=== PATIENT | female | born 1940 | race Caucasian/White ===

== ENCOUNTER 2020-10-24 16:38 | Outpatient (REF) | payer MEDICARE, OTHER, SELFPAY ==
[2020-10-24 17:08] LABS: MANUAL DIFF FLAG NO
[2020-10-24 17:15] LABS: Basophils Percent Auto 0.5 % (0-2); Eosinophils Absolute Auto 0.1 X10*3/uL (0.0-0.4); Eosinophils Percent Auto 1.1 % (0-4); Hematocrit 44.6 % (37-47); Imm Gran Abs Auto 0.02 X10*3/uL (0.00-0.03); Imm Gran Pct Auto 0.2 % (0.0-0.4); Lymphocytes Absolute Auto 2.1 X10*3/uL (1.2-4.9); Lymphocytes Percent Auto 25.6 % (20-40); Mean Corpuscular HGB Conc 33.6 g/dl (31.0-35.0); Mean Corpuscular Hemoglobin 32.1 pg (27.0-33.0); Mean Corpuscular Volume 95.3 fL (80-98); Mean Platelet Volume 10.7 fL (9.4-12.3); Monocytes Absolute Auto 0.6 X10*3/uL (0.1-1.2); Monocytes Percent Auto 7.1 % (2-11); Neutrophils Absolute Auto 5.3 X10*3/uL (2.0-8.3); Neutrophils Percent Auto 65.5 % (45-73); Platelet Count 259 X10*3/uL (160-400); Red Blood Count 4.68 X10*6/uL (4.20-5.50); Red Cell Distribution Width 12.5 % (11.0-16.0); White Blood Count 8.2 X10*3/uL (4.8-10.8)
[2020-10-24 17:26] LABS: Estimated Average Glucose 128 mg/dL; Hemoglobin A1c % 6.1 %
[2020-10-24 17:36] LABS: Alanine Aminotransferase 18 U/L (0-31); Albumin Level 4.5 g/dL (3.5-5.0); Alkaline Phosphatase 75 U/L (39-117); Anion Gap 15 (12-20); Aspartate Amino Transferase 21 U/L (5-31); Bilirubin Total 0.8 mg/dL (0.0-1.0); Blood Urea Nitrogen 16 mg/dL (9-16); Calcium 9.8 mg/dL (8.4-10.2); Carbon Dioxide 29 mmol/L (22-29); Chloride 99 mmol/L (96-108); Estimated Glomerular Filt Rate > 60; Glucose Random 118 mg/dL (60-115); Potassium 4.8 mmol/L (3.3-5.1); Sodium 138 mmol/L (135-145); Total Protein 7.4 g/dL (6.5-8.0)
== END 2020-10-24 16:39 | disposition home or self-care (01) ==
LOC: HO.LAB 16:38
PROVIDERS: PCP Internal Medicine; Visit Provider Internal Medicine
DX: I10 Essential (primary) hypertension (principal); R73.03 Prediabetes
CPT/HCPCS: 36415; 80053; 83036; 85025

== ENCOUNTER 2021-07-20 09:04 | Outpatient (REF) | payer MEDICARE, OTHER, SELFPAY ==
[2021-07-20 11:18] LABS: MANUAL DIFF FLAG NO
[2021-07-20 11:28] LABS: Basophils Percent Auto 0.4 % (0-2); Eosinophils Absolute Auto 0.1 X10*3/uL (0.0-0.4); Eosinophils Percent Auto 2.1 % (0-4); Hematocrit 42.5 % (37.0-47.0); Imm Gran Abs Auto 0.01 X10*3/uL (0.00-0.03); Imm Gran Pct Auto 0.2 % (0.0-0.4); Lymphocytes Absolute Auto 1.6 X10*3/uL (1.2-4.9); Lymphocytes Percent Auto 30.8 % (20-40); Mean Corpuscular HGB Conc 32.9 g/dl (31.0-35.0); Mean Corpuscular Hemoglobin 31.6 pg (27.0-33.0); Mean Corpuscular Volume 95.9 fL (80.0-98.0); Mean Platelet Volume 11.2 fL (9.4-12.3); Monocytes Absolute Auto 0.5 X10*3/uL (0.1-1.2); Monocytes Percent Auto 9.2 % (2-11); Neutrophils Absolute Auto 3.1 x10*3/uL (2.0-8.3); Neutrophils Percent Auto 57.3 % (45-73); Platelet Count 198 X10*3/uL (160-400); Red Blood Count 4.43 X10*6/uL (4.20-5.50); Red Cell Distribution Width 12.9 % (11.0-16.0); White Blood Count 5.3 X10*3/uL (4.8-10.8)
[2021-07-20 11:47] LABS: Appearance Urine CLEAR; Color Urine YELLOW; Glucose Urine UA NEG (NEG); Leukocyte Esterase Urine NEG (NEG); Nitrite Urine NEG (NEG); Specific Gravity - Urine 1.015 (1.005-1.025); Urine Blood NEG (NEG); Urine Ketones NEG (NEG); Urine Protein NEG (NEG-TRACE)
[2021-07-20 11:54] LABS: Alanine Aminotransferase 17 U/L (0-31); Alkaline Phosphatase 64 U/L (39-117); Anion Gap 15 (12-20); Aspartate Amino Transferase 19 U/L (5-31); Bilirubin Total 0.9 mg/dL (0.0-1.0); Blood Urea Nitrogen 15 mg/dL (9-16); Calcium 9.2 mg/dL (8.4-10.2); Carbon Dioxide 24 mmol/L (22-29); Chloride 104 mmol/L (96-108); Cholesterol 196 mg/dL; Estimated Glomerular Filt Rate > 60; Glucose Fasting 119 mg/dL (60-99); HDL Cholesterol 47 mg/dL; LDL Cholesterol Calculated 124 mg/dl; Potassium 4.3 mmol/L (3.3-5.1); Sodium 139 mmol/L (135-145); Total Protein 6.5 g/dL (6.5-8.0); Triglycerides 126 mg/dL
[2021-07-20 12:16] LABS: Estimated Average Glucose 134 mg/dL; Hemoglobin A1c % 6.3 %
[2021-07-20 12:20] LABS: Creatinine Urine 78.16 mg/dL; Microalbumin Urine < 5.0 mg/L
== END 2021-07-20 09:05 | disposition home or self-care (01) ==
LOC: HO.HMGCLDS 09:04
PROVIDERS: PCP Internal Medicine; Visit Provider Internal Medicine
DX: Z00.00 Encounter for general adult medical examination without abnormal findings (principal); I10 Essential (primary) hypertension; R73.03 Prediabetes; E55.9 Vitamin D deficiency, unspecified
CPT/HCPCS: 36415; 80053; 80061; 81003; 82043; 82306; 83036; 85025

== ENCOUNTER 2021-07-25 13:52 | Outpatient (REF) | payer MEDICARE, OTHER, SELFPAY ==
--- NOTE | ~2021-07-25 | MM_ITS ---
EXAMINATION: MM SCREENING DIGITAL BREAST TOMOSYNTHESIS, BILATERAL CLINICAL INFORMATION: Screening. Asymptomatic. The lifetime risk of breast cancer based on the Tyrer-Cuzick Model is 1%. COMPARISON: Mammography: 08/17/2019, 06/06/2017, 08/24/2015 TECHNIQUE: Digital breast tomosynthesis is performed in both the craniocaudal and mediolateral oblique views along with computer-aided detection (CAD). Synthesized 2D images are generated from the tomosynthesis. Additional right MLO view is provided. FINDINGS: There are scattered areas of fibroglandular density (ACR BI-RADS breast composition Category b). There are no significant masses, abnormal calcifications, or other abnormalities. MM/MM tomosynthesis screening BI IMPRESSION: No mammographic evidence of malignancy. ASSESSMENT: BI-RADS 1: Negative RECOMMENDATION: Routine annual mammography screening. This patient's information was entered into a reminder system with a target due date for their next mammogram.
== END 2021-07-25 13:53 | disposition home or self-care (01) ==
LOC: HO.MAMMO 13:52
PROVIDERS: Visit Provider Internal Medicine
DX: Z12.31 Encounter for screening mammogram for malignant neoplasm of breast (principal)
CPT/HCPCS: 77063; 77067

== ENCOUNTER → 2021-09-18 09:13 | Outpatient (REF) | payer MEDICARE, OTHER, SELFPAY ==
--- NOTE | 2021-09-18 09:30 | CA_ITS ---
Transthoracic Echocardiogram Patient (Last, First, Middle): Leora Quinones E Gender: Female Date of : 1940 Age: 81 Procedure Date: 09/18/2021 Procedure Type: Transthoracic Echocardiogram Location: OP Height: 170.18 cm Weight: 92.99 kg BSA: 2.04 m2 Heart Rate: bpm BP: 116 / 70 mmHg Flight Control Tower Operator: NEO Referring MD: Benjamin Lynn MD Symptoms: CARDIAC MURMUR, UNSPECIFIED MURMUR Study Quality: Fair ECG Rhythm: Sinus Conclusions: - The left ventricular systolic function is normal. The visually estimated ejection fraction is between 65-70%. - There is severe aortic valve stenosis. - There is moderate mitral annular calcification. Findings Left Ventricle Normal left ventricular cavity size. There is mildly increased left ventricular wall thickness. The left ventricular systolic function is normal. The visually estimated ejection fraction is between 65-70%. There is no evidence of regional wall motion abnormalities. Evidence suggests grade I (mild) diastolic dysfunction. Right Ventricle Normal right ventricular cavity size and systolic function. Atria Both atria are normal in size. Aortic Valve There is moderate calcification of the aortic valve. There is severe aortic valve stenosis. The peak aortic velocity is 4.32 m/s with a calculated peak gradient of 75 mmHg. The mean gradient is 44 mmHg. The aortic valve area is 0.85 cm2. There is trace (trivial) aortic valve regurgitation. Mitral Valve There is moderate mitral annular calcification. There is mild mitral valve regurgitation. There is no mitral valve stenosis. Pulmonic Valve The pulmonic valve was not well visualized. Tricuspid Valve There is mild tricuspid valve regurgitation. The pulmonary artery systolic pressure is normal. Great Vessels The aortic annulus, sinuses of valsalva, and asc aorta are normal in size. Venous The inferior vena cava is normal in size and collapses greater than 50% with inspiration. Pericardium/Pleural There is no evidence of pericardial effusion. Prior Study Comparison Changes noted compared to prior study dated: 08/17/2019. Progression of aortic stenosis. Measurements 2D Linear Measurements IVSd: 1.20 0.6-0.9/0.6-1.0 cm LVIDd: 5.01 3.9-5.3/4.2-5.9 cm LVIDd Index: 2.46 2.4-3.2/2.2-3.1 cm/m2 LVIDs: 3.09 2.0-3.6 cm LVPWd: 1.17 0.7-1.1 cm Ao Root: 2.80 2.1-3.5 cm LA Diam: 4.00 2.7-3.8/3.0-4.0 cm LAIDs Index: 1.96 1.5-2.3 cm/m2 LV Mass: 287.24 67-162/88-224 g LV Mass Index: 140.81 43-95/49-115 g/m2 LVOT Diam: 2.00 3.0+(-)1.3 cm 2D Systolic Function EF 4C: 56.60 >55% EF 2C: 62.00 >55% EF BiP: 60.20 >55% Mitral Valve MV Pk E: 1.11 MV PK A: 1.57 MV Decel Time: 394.00 E/A: 0.70 E'Lateral: 6.31 E'Medial: 4.03 E/E' Med: 27.50 E/E' Lat: 17.60 PHT: 116.00 MVA PHT: 1.90 Decel Faulk: 2.81 Aortic Valve AoV Pk Sudarshan: 4.32 AoV Mn Sudarshan: 3.19 AoV VTI: 1.15 AoV Pk Grad: 75.00 Aov Mn Grad: 44.00 FRACISCO Cont.VTI: 0.85 LVOT LVOT Pk Sudarshan: 1.11 LVOT Mn Sudarshan: 0.79 LVOT VTI: 0.31 LVOT Pk Grad: 5.00 LVOT Mn Grad: 3.00 LVOT Diam: 2.00 LVOT Area: 3.14 Diastolic Function MV Pk E: 1.11 MV Pk A: 1.57 E/A: 0.70 E'Medial: 4.03 E/E' Med: 27.50 E' Laterial: 6.31 E/E' Lat: 17.60 Right Ventricle TAPSE (mm): 23.50 TVS' Sudarshan: 11.50 Tricuspid Valve TR Pk Sudarshan: 2.67 TR Pk Grad: 29.00 RA Press: 3.00 RVSP: 32.00 Great Vessels Aorta Ao Root-2D: 2.80 2.0-3.7 cm Ao Asc: 3.30 2.1-3.4 cm Ao Arch: 3.10 Updated in Other Vendor System with Status of Final Shaun Palencia MD electronically signed on 09/19/2021 11:25:22 AM with status of Final
== END ==
LOC: HO.CARD 09:13
PROVIDERS: PCP Internal Medicine; Visit Provider Internal Medicine
DX: R01.1 Cardiac murmur, unspecified (principal)
CPT/HCPCS: 93306

== ENCOUNTER 2022-04-02 12:19 | Outpatient (REF) | payer MEDICARE, OTHER, SELFPAY ==
--- NOTE | ~2022-04-02 | XR_ITS ---
EXAMINATION: XR SHOULDER, LEFT CLINICAL INFORMATION: Left shoulder pain COMPARISON: None TECHNIQUE: Three views of the left shoulder. FINDINGS: No fracture or dislocation. The glenohumeral joint is well aligned. The acromioclavicular joint is intact with moderate hypertrophic degenerative change. The visualized lung is clear. The visualized ribs are intact. XR/XR shoulder LT min 2V IMPRESSION: Moderate degenerative changes of the acromioclavicular joint.
== END 2022-04-02 12:20 | disposition home or self-care (01) ==
LOC: HO.HOSX 12:19
PROVIDERS: Visit Provider Physician Assistant
DX: M19.012 Primary osteoarthritis, left shoulder (principal)
CPT/HCPCS: 20600; 73030; 99202; J1020

== ENCOUNTER 2022-05-02 10:51 | Outpatient (REF) | payer MEDICARE, OTHER, SELFPAY ==
[2022-05-02 14:08] LABS: MANUAL DIFF FLAG NO
[2022-05-02 14:20] LABS: Basophils Percent Auto 0.3 % (0-2); Eosinophils Percent Auto 0.3 % (0-4); Hemoglobin 13.4 g/dl (12.0-16.0); Imm Gran Abs Auto 0.03 X10*3/uL (0.00-0.03); Imm Gran Pct Auto 0.4 % (0.0-0.4); Lymphocytes Absolute Auto 1.1 X10*3/uL (1.2-4.9); Lymphocytes Percent Auto 15.7 % (20-40); Mean Corpuscular HGB Conc 33.5 g/dl (31.0-35.0); Mean Corpuscular Hemoglobin 31.5 pg (27.0-33.0); Mean Corpuscular Volume 94.1 fL (80.0-98.0); Mean Platelet Volume 10.5 fL (9.4-12.3); Monocytes Absolute Auto 0.5 X10*3/uL (0.1-1.2); Monocytes Percent Auto 7.9 % (2-11); Neutrophils Percent Auto 75.4 % (45-73); Platelet Count 219 X10*3/uL (160-400); Red Blood Count 4.25 X10*6/uL (4.20-5.50); Red Cell Distribution Width 13.2 % (11.0-16.0); White Blood Count 6.7 X10*3/uL (4.8-10.8)
[2022-05-02 14:31] LABS: Estimated Average Glucose 120 mg/dL; Hemoglobin A1c % 5.8 %
[2022-05-02 14:40] LABS: Alanine Aminotransferase 31 U/L (0-31); Alkaline Phosphatase 59 U/L (39-117); Anion Gap 15 (12-20); Aspartate Amino Transferase 26 U/L (5-31); Bilirubin Total 0.6 mg/dL (0.0-1.0); Blood Urea Nitrogen 13 mg/dL (9-16); C Reactive Protein 0.21 mg/dL (< or = 0.50); Calcium 9.4 mg/dL (8.4-10.2); Carbon Dioxide 26 mmol/L (22-29); Chloride 95 mmol/L (96-108); Estimated Glomerular Filt Rate > 60; Glucose Random 106 mg/dL (60-115); Potassium 4.5 mmol/L (3.3-5.1); Sodium 131 mmol/L (135-145); Total Protein 6.5 g/dL (6.5-8.0)
[2022-05-02 14:59] LABS: Erythrocyte Sedimentation Rate 5 MM/HR (0-20)
[2022-05-02 15:03] LABS: Free T4 (Free Thyroxine) 1.01 ng/dL (0.71-1.85); Thyroid Stimulating Hormone 0.76 uIU/mL (0.32-4.0)
[2022-05-02 15:36] LABS: Vitamin B12 280 pg/mL (200-900)
== END 2022-05-02 10:52 | disposition home or self-care (01) ==
LOC: HO.HMGCLDS 10:51
PROVIDERS: PCP Internal Medicine; Visit Provider Internal Medicine
DX: I10 Essential (primary) hypertension (principal); R73.03 Prediabetes; M79.659 Pain in unspecified thigh; Z95.2 Presence of prosthetic heart valve
CPT/HCPCS: 36415; 80053; 82550; 82607; 83036; 84439; 84443; 85025; 85652; 86140

== ENCOUNTER 2022-06-04 09:10 | Outpatient (REF) | payer MEDICARE, OTHER, SELFPAY ==
--- NOTE | ~2022-06-04 | CT_ITS ---
EXAMINATION: CT LUMBAR SPINE WITHOUT CONTRAST CLINICAL INFORMATION: Lower extremity numbness. COMPARISON: No relevant prior imaging. TECHNIQUE: Supervisor Vacuum Metalizing images were obtained. CT imaging of the lumbar spine was performed without contrast. Data was reformatted into multiplanar images at the acquisition workstation. This CT examination was performed using dose optimization techniques as appropriate, variously including the following: *Automated exposure control *Adjustment of mA and/or kV according to patient size (this includes techniques or standardized protocols for targeted exams where dose is matched to indication/reason for exam; i.e. extremities or head) *Use of iterative reconstruction technique DLP; 679 mGy-cm FINDINGS: Grade 1 anterolisthesis and slight left lateral subluxation of L4 on L5 related to advanced facet degenerative changes at this level. Alignment is otherwise grossly maintained in the sagittal dimension. Vertebral heights are preserved. Bridging bone fuses the vertebral segments at L4-L5 and L5-S1. There is slight loss of intervertebral disc height with associated sclerotic degenerative endplate changes and hypertrophic disc osteophyte spurring at multiple levels. Canal patency is not well assessed on this examination due to inherent limitations of CT without intrathecal contrast. There is at least mild canal stenosis at the level of L3-L4. Partial effacement of perineural fat at the levels of L4-L5 and L5-S1 with mild mass effect on the L4 and L5 foraminal nerve roots respectively. Limited visualization the retroperitoneal anatomy reveals no abnormal finding. Scattered atheromatous caliber indication involve the abdominal aorta and iliac vessels. 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 Bridging bone fuses the vertebral segments at L4-L5 and L5-S1. 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
== END 2022-06-04 09:11 | disposition home or self-care (01) ==
LOC: HO.CT 09:10
PROVIDERS: PCP Internal Medicine; Visit Provider Internal Medicine
DX: R20.2 Paresthesia of skin (principal)
CPT/HCPCS: 72131

== ENCOUNTER → 2022-06-07 10:07 | Outpatient (BNVA) | payer MEDICARE, OTHER, SELFPAY | PROVIDERS: PCP Internal Medicine; Visit Provider Physician Assistant | DX: M19.012 Primary osteoarthritis, left shoulder (principal); S46.019A Strain of muscle(s) and tendon(s) of the rotator cuff of unspecified shoulder, initial encounter | CPT/HCPCS: 99212 ==

== ENCOUNTER 2022-08-05 11:00 | Outpatient (RCR) | payer MEDICARE, OTHER, SELFPAY ==
--- NOTE | 2022-06-25 10:53 | MHC.PT.EP ---
[facility] [place] Office [place] Office [place] Office [address] Erik Mejia [address] [phone] F: [phone] F: [phone] F: [phone] F: [phone] Physical Therapy Plan of Care Date of Evaluation: Date of Surgery: n/a Diagnosis: L shoulder RC strain Assessment: Patient is an 82 year old female presenting to PT with complaints of pain in her L shoulder. Pt reports onset of pain began April 2022 due to pushing off to get up out of a seated position. She presents today with impairments in pain, ROM, strength, and posture. Pt's current occupation is retired, with baseline physical activities including ADLs, reaching, lifting, knitting, driving. Pt expresses care home goal of reducing pain, and is motivated to work towards this in PT. Clinical presentation today is most consistent with signs and sx associated with possible RC injury although biceps injury cannot be ruled out at this time and pt will benefit from skilled PT to address the following problems and impairments noted upon evaluation: pain, ROM, strength, and posture. These problems limit the patient with the following functional activities: reaching, ADLs, lifting, driving, knitting. The prescribed treatment plan of care is medically necessary. Co-morbidities of heart valve replacement, DM were identified and taken into considerations of plan of care. Pt was educated on HEP, role of PT, prognosis, POC. Frequency and Duration: The patient will be seen 2 x week x 4 weeks Short Term Goals: Pt will demonstrate improved shoulder ROM for flex and abd by 20 degrees to 80 and 65 respectively in 2 weeks. Pt will demonstrate at least 3+/5 MMT strength on L in 2 weeks. Pt will demonstrate improved postural awareness by sitting with biomechanically correct posture without cues throughout session to improve overall postural function in 2 weeks. Cotton Buyer Goals: Pt will demonstrate improved SPADI score by 13 points in 4 weeks for improved functional mobility. Pt will demonstrate ability to driving with min to no pain or limitation in 4 weeks. Pt will demonstrate ability to reach and lift with min to no pain in 4 weeks for improved tolerance to ADLs. Treatment Plan: Modalities to reduce pain, spasms and effusion. Manual therapy to restore motion and function. Therapeutic exercise to improve strength and flexibility. Neuromuscular re-education for posture and balance. Therapeutic activities to return to functional activities of daily living. Electronically signed by: Mala Zambrano PT, DPT, ATC Please sign and return to therapist. Thank you for your referral.
--- NOTE | 2022-08-05 11:54 | MHC.PT.DC ---
[facility] [place] Office [place] Office [place] Office [address] Erik Mejia [address] [phone] F: [phone] F: [phone] F: [phone] F: [phone] Physical Therapy Discharge Report Diagnosis: L shoulder RC strain Date of Surgery: n/a Date of Evaluation: 06/25/22 Date of Discharge: 08/05/22 Treatments to Date: 12 Cancellations to Date: 0 No Shows to Date: 0 Discharge Status: Improved Function Independent with HEP Discharge Summary: 08/05/2022: Pt demonstrates improvement since beginning skilled PT however she is continuing to experiencing limitations in her ROM and strength especially ER. She feels functionally she is in a better spot as she is able to tolerate most things she needs to do at home. At this point max benefits of PT have been provided and skilled PT is no longer indicated at this time. She understands importance of continuing with HEP at home to maintain benefits made thus far. Pt to be d/c to HEP as she has a new referral for gait and balance which we will be switching over to. Pt is in agreement with plan. 07/29/2022: Continues with challenge in ER but continues to tolerate all exercises without pain. Challenge with flexion on the wall still but this is improving. Plan to d/c next visit Electronically signed by: Mala Zambrano, PT, DPT, ATC Please sign and return to therapist. Thank you for your referral.
== END 2022-08-05 11:54 | disposition home or self-care (01) ==
LOC: HO.PTCHIC 11:00
PROVIDERS: PCP Internal Medicine; Visit Provider Physician Assistant
DX: M19.012 Primary osteoarthritis, left shoulder (principal); S46.012A Strain of muscle(s) and tendon(s) of the rotator cuff of left shoulder, initial encounter
CPT/HCPCS: 97110; 97161

== ENCOUNTER 2022-09-13 11:00 | Outpatient (RCR) | payer MEDICARE, OTHER, SELFPAY | END 2022-09-27 12:58 | disposition home or self-care (01) | LOC: HO.PTCHIC 11:00 | PROVIDERS: PCP Internal Medicine; Visit Provider Neurological Surgery | DX: R26.89 Other abnormalities of gait and mobility (principal) | CPT/HCPCS: 97110; 97112; 97162; 97530 ==

== ENCOUNTER 2023-02-20 09:15 | Outpatient (REF) | payer MEDICARE, OTHER, SELFPAY ==
[2023-02-20 10:43] LABS: MANUAL DIFF FLAG NO
[2023-02-20 10:51] LABS: Basophils Percent Auto 0.7 % (0-2); Eosinophils Absolute Auto 0.1 X10*3/uL (0.0-0.4); Hematocrit 41.8 % (37.0-47.0); Imm Gran Abs Auto 0.01 X10*3/uL (0.00-0.03); Imm Gran Pct Auto 0.2 % (0.0-0.4); Lymphocytes Absolute Auto 1.8 X10*3/uL (1.2-4.9); Lymphocytes Percent Auto 31.7 % (20-40); Mean Corpuscular HGB Conc 33.5 g/dl (31.0-35.0); Mean Corpuscular Hemoglobin 31.8 pg (27.0-33.0); Mean Platelet Volume 11.7 fL (9.4-12.3); Monocytes Absolute Auto 0.5 X10*3/uL (0.1-1.2); Neutrophils Absolute Auto 3.2 x10*3/uL (2.0-8.3); Neutrophils Percent Auto 57.4 % (45-73); Platelet Count 189 X10*3/uL (160-400); White Blood Count 5.6 X10*3/uL (4.8-10.8)
[2023-02-20 11:14] LABS: Alanine Aminotransferase 13 U/L (0-31); Albumin Level 3.9 g/dL (3.5-5.0); Alkaline Phosphatase 75 U/L (39-117); Anion Gap 14 (12-20); Aspartate Amino Transferase 17 U/L (5-31); Bilirubin Total 0.8 mg/dL (0.0-1.0); Blood Urea Nitrogen 16 mg/dL (9-16); Calcium 9.5 mg/dL (8.4-10.2); Carbon Dioxide 26 mmol/L (22-29); Chloride 103 mmol/L (96-108); Cholesterol 189 mg/dL; Estimated Glomerular Filt Rate > 60; Glucose Random 121 mg/dL (60-115); HDL Cholesterol 48 mg/dL; LDL Cholesterol Calculated 119 mg/dl; Potassium 4.2 mmol/L (3.3-5.1); Sodium 139 mmol/L (135-145); Total Protein 6.7 g/dL (6.5-8.0); Triglycerides 111 mg/dL
[2023-02-20 11:35] LABS: Estimated Average Glucose 128 mg/dL; Hemoglobin A1c % 6.1 %
== END 2023-02-20 09:16 | disposition home or self-care (01) ==
LOC: HO.10HDL 09:15
PROVIDERS: Visit Provider Internal Medicine
DX: I10 Essential (primary) hypertension (principal); R73.03 Prediabetes; M51.36 Other intervertebral disc degeneration, lumbar region
CPT/HCPCS: 36415; 80053; 80061; 83036; 85025

== ENCOUNTER 2023-04-03 09:32 | Outpatient (REF) | payer MEDICARE, OTHER, SELFPAY ==
--- NOTE | ~2023-04-03 | MM_ITS ---
EXAMINATION: MM SCREENING DIGITAL BREAST TOMOSYNTHESIS, BILATERAL CLINICAL INFORMATION: Screening. Asymptomatic. The lifetime risk of breast cancer based on the Tyrer-Cuzick Model is 0.4%. COMPARISON: Mammography: 07/25/2021,08/17/2019, 06/06/2017, 08/24/2015. TECHNIQUE: Digital breast tomosynthesis is performed in both the craniocaudal and mediolateral oblique views along with computer-aided detection (CAD). Synthesized 2D images are generated from the tomosynthesis. FINDINGS: There are scattered areas of fibroglandular density (ACR BI-RADS breast composition Category b). There are no suspicious masses, suspicious grouped calcifications, or areas of architectural distortion. The parenchymal pattern is stable from prior exams. There are bilateral vascular calcifications. MM/MM tomosynthesis screening BI IMPRESSION: No mammographic evidence of malignancy. ASSESSMENT: BI-RADS BI-RADS 2 - Benign Findings RECOMMENDATION: Routine annual mammography screening. 1 year F/U This examination should not preclude the clinical evaluation of a suspicious palpable abnormality. This patient's information was entered into a reminder system with a target due date for their next mammogram.
--- NOTE | ~2023-04-03 | MM_ITS ---
EXAMINATION: BONE DENSITOMETRY CLINICAL INDICATION: Postmenopausal. COMPARISON: Baseline BD dated 08/10/2009. TECHNIQUE: Using a Self Point DXA System (software version: 13.1) manufactured by [employer], dual-energy x-ray absorptiometry was performed of the lumbar spine and left hip. The images are of good technical quality. Summary results are attached. FINDINGS: LEFT FEMUR, NECK: Current: BMD 0.801 g/cm2, Z-score 0.1, T-score -1.7, osteopenia. Baseline: BMD 0.939 g/cm2. LEFT FEMUR, TOTAL: Current: BMD 0.907 g/cm2, Z-score 0.9, T-score -0.8, normal, 17.8% decrease from baseline (<5% change is not significant). Baseline: BMD 1.104 g/cm2. AP SPINE L1-L4 (excluding L3): The data of L1-L4 has been changed to exclude the L3 vertebral body, because degenerative sclerosis at this level may cause overestimation of lumbar spine density. Current: BMD 1.401 g/cm2, Z-score 3.0, T-score 1.9, normal, 5.7% increase from baseline (<5% change is not significant). Baseline: BMD 1.326 g/cm2. IDENTIFIED RISK FACTORS: Menopause, hysterectomy, height loss, bilateral oophorectomy. HISTORY OF FRACTURE: None listed. MEDICATIONS: None listed. MM/XR DEXA axial skeleton IMPRESSION: 1. DIAGNOSIS: Osteopenia based on the lowest T-score value of -1.7 in the femoral neck applying World Health Organization criteria. 2. 10-YEAR FRACTURE RISK PREDICTION, FRAX: Major osteoporotic fracture (clinical spine, forearm, hip or shoulder) 13.9%. Hip fracture 3.8%. 3. Treatment Recommendations: NOF guidelines recommend consideration for treatment in postmenopausal women and men age 50 and older presenting with the following: -A hip or vertebral (clinical or morphometric) fracture. -T-score less than or equal to -2.5 at the femoral neck or spine after appropriate evaluation to exclude secondary causes. -Low bone mass at the hip or spine and a 10-year fracture probability by FRAX of greater than or equal to 3% for hip fracture or greater than or equal to 20% for major osteoporotic fracture based on the [place] adapted WHO algorithm. 4. Other Recommendations: All treatment decisions require clinical judgment and consideration of individual patient factors, including patient preferences, comorbidities, previous drug use, risk factors not captured in the FRAX model (e.g. frailty, falls, vitamin D deficiency, increased bone turnover, interval significant decline in bone density) and possible under or overestimation of fracture risk by FRAX. Additional medical evaluation for secondary cause of low bone mineral density may be appropriate. FUTURE SCAN RECOMMENDATION: People with diagnosed cases of osteoporosis or at high risk for fracture should have regular bone mineral density tests. For patients eligible for Medicare, routine testing is allowed once every 2 years. The testing frequency can be increased to one year for patients who have rapidly progressing disease, those who are receiving or discontinuing medical therapy to restore bone mass, or have additional risk factors.
== END 2023-04-03 09:33 | disposition home or self-care (01) ==
LOC: HO.MAMMO 09:32
PROVIDERS: PCP Internal Medicine; Visit Provider Internal Medicine
DX: Z12.31 Encounter for screening mammogram for malignant neoplasm of breast (principal); Z13.820 Encounter for screening for osteoporosis; Z78.0 Asymptomatic menopausal state
CPT/HCPCS: 77063; 77067; 77080

== ENCOUNTER → 2023-04-03 10:00 | Outpatient (BNV) | payer MEDICARE, OTHER, SELFPAY | PROVIDERS: PCP Internal Medicine; Visit Provider Radiology Diagnostic Radiology | DX: Z12.31 Encounter for screening mammogram for malignant neoplasm of breast (principal) | CPT/HCPCS: 77063; 77067; 77080 ==

== ENCOUNTER 2024-01-14 11:14 | Outpatient (REF) | payer MEDICARE, OTHER, SELFPAY ==
[2024-01-14 13:17] LABS: MANUAL DIFF FLAG NO
[2024-01-14 13:32] LABS: Basophils Absolute Auto 0.1 X10*3/uL (0.0-0.2); Basophils Percent Auto 0.6 % (0-2); Eosinophils Absolute Auto 0.1 X10*3/uL (0.0-0.4); Eosinophils Percent Auto 0.6 % (0-4); Hematocrit 43.1 % (37.0-47.0); Hemoglobin 14.5 g/dl (12.0-16.0); Imm Gran Abs Auto 0.03 X10*3/uL (0.00-0.03); Imm Gran Pct Auto 0.4 % (0.0-0.4); Lymphocytes Absolute Auto 1.7 X10*3/uL (1.2-4.9); Lymphocytes Percent Auto 20.9 % (20-40); Mean Corpuscular HGB Conc 33.6 g/dl (31.0-35.0); Mean Corpuscular Hemoglobin 32.6 pg (27.0-33.0); Mean Corpuscular Volume 96.9 fL (80.0-98.0); Mean Platelet Volume 11.2 fL (9.4-12.3); Monocytes Absolute Auto 0.7 X10*3/uL (0.1-1.2); Monocytes Percent Auto 8.4 % (2-11); Neutrophils Absolute Auto 5.5 x10*3/uL (2.0-8.3); Neutrophils Percent Auto 69.1 % (45-73); Platelet Count 210 X10*3/uL (160-400); Red Blood Count 4.45 X10*6/uL (4.20-5.50); Red Cell Distribution Width 13.2 % (11.0-16.0)
[2024-01-14 13:35] LABS: Estimated Average Glucose 134 mg/dL; Hemoglobin A1c % 6.3 % (<6.0)
[2024-01-14 13:47] LABS: Alanine Aminotransferase 15 U/L (0-31); Albumin Level 3.9 g/dL (3.5-5.0); Alkaline Phosphatase 58 U/L (39-117); Anion Gap 12 (12-20); Aspartate Amino Transferase 18 U/L (5-31); Bilirubin Total 0.5 mg/dL (0.0-1.0); Blood Urea Nitrogen 17 mg/dL (9-16); Calcium 9.8 mg/dL (8.4-10.2); Carbon Dioxide 27 mmol/L (22-29); Chloride 101 mmol/L (96-108); Estimated Glomerular Filt Rate > 60; Glucose Random 113 mg/dL (60-115); Potassium 4.1 mmol/L (3.3-5.1); Sodium 136 mmol/L (135-145); Total Protein 6.7 g/dL (6.5-8.0); Uric Acid 7.1 mg/dL (2.4-5.7)
[2024-01-14 13:55] LABS: Vitamin D 25-OH Total 49.1 ng/mL (>30)
[2024-01-14 14:10] LABS: Creatinine Urine 75.27 mg/dL; Microalbum/Creatinine Ratio Ur 7.9 ug/mg cr (<30)
== END 2024-01-14 11:15 | disposition home or self-care (01) ==
LOC: HO.HMGCLDS 11:14
PROVIDERS: PCP Internal Medicine; Visit Provider Internal Medicine
DX: I10 Essential (primary) hypertension (principal); R73.03 Prediabetes; M10.9 Gout, unspecified; Z95.2 Presence of prosthetic heart valve
CPT/HCPCS: 36415; 80053; 82043; 82306; 82570; 83036; 84550; 85025

== ENCOUNTER 2025-01-14 14:14 | Outpatient (AMB) | payer MEDICARE, OTHER, SELFPAY ==
--- NOTE | 2025-01-14 11:41 | MHC.PC.OV ---
Intake Visit Reasons: Routine Senior Pricing Analyst Required: No Accompanied by: Self / Same As Patient Allergies doxycycline Allergy (Verified 01/14/25 11:42) lip tingling & SOB Tobacco use date assessed: 01/14/25 Fall risk assessment: No Falls in past year Last assessed Fall Risk: 01/14/25 Dental Screening Dental Screen Date: 01/14/25 Did you have a dental visit in the last 12 months?: Yes Did you have a dental problem in the last 6 months where you did not have access to dental care?: No HPI HPI Comments History of Present Illness Details The patient is an 84 year old female with a past medical history of hypertension, NIDDM, neck pain, s/p TAVR presenting for follow up DM: PFSH Medical History FH: cholecystectomy Surgical History History of colonoscopy (~05/19/13) S/P left knee arthroscopy History of appendectomy Heart valve replaced Social History Housing: House Patient Tobacco Use Status: Never used Tobacco e-Cigarette/Vaping Use: Never Used service: No Current occupational status: retired Cognitive needs: No Hearing needs: No Vision needs: No Questionnaire PHQ-9 Over the last 2 weeks, how often have you been bothered by any of the following problems? 1. Little interest or pleasure in doing things: not at all 2. Feeling down, depressed, or hopeless: not at all 3. Trouble falling or staying asleep, or sleeping too much: not at all 4. Feeling tired or having little energy: not at all 5. Poor appetite or overeating: not at all 6. Feeling bad about yourself - or that you are a failure or have let yourself or your family down: not at all 7. Trouble concentrating on things, such as reading the newspaper or watching television: not at all 8. Moving or speaking so slowly that other people could have noticed. Or the opposite - being so fidgety or restless that you have been moving around a lot more than usual: not at all 9. Thoughts that you would be better off or of hurting yourself in some way: not at all Total score: 0 Source: Developed by Drs. Mario Canales, Cynthia Rosales, Fly Ortega and colleagues, with an educational chriss from [employer]. Thrive Questionnaire Date Thrive assessed: 01/14/25 I am a: Patient Within the past 12 months, did the food you bought not last and you didn't have the money to get more?: Never true Do you have trouble paying for medicines?: No Do you have trouble getting transportation to medical appointments?: No Do you have trouble paying your heating and electricity bill?: No Do you have trouble taking care of your child, family member or friend?: No Do you have trouble with day-to-day activities such as bathing, preparing meals, shopping, managing finances, etc.?: No Are you currently unemployed and looking for a job?: No Are you interested in more education?: No THRIVE Score: 0 AUDIT C Alcohol Use Questionnaire (AUDIT-C) 1. How often do you have a drink containing alcohol?: Never 3. How often do you have six or more drinks on one occasion?: Never Total Score: 0 KAYLA-7 AMB Questionnaire KAYLA-7 Date KAYLA - 7 assessed: 01/14/25 Feeling nervous, anxious, or on edge: 0 = Not at all Not being able to stop or control worryin = Not at all Worrying too much about different things: 0 = Not at all Trouble relaxin = Not at all Being so restless that it is hard to sit still: 0 = Not at all Becoming easily annoyed or irritable: 0 = Not at all Feeling afraid as if something awful might happen: 0 = Not at all Total KAYLA-7 score (0-4 normal; 5-9 mild; 10-14 moderate; 15-21 severe): 0 Source: Developed by Drs. Mario Canales, Fly Toussaint and colleagues, with an educational chriss from [employer]. Physical exam (Primary Care) Tobacco/Smoking Status: Tobacco use Status Tobacco use date assessed 01/14/25 01/14/25 11:43 Patient Tobacco Use Status Never used Tobacco 01/14/25 11:43 e-Cigarette/Vaping Use Never Used 01/14/25 11:43 PHQ-9: PHQ-9 Score PHQ-9: Total score 0 01/14/25 14:51 Thrive Assessment: Date of Thrive Assessment Date Thrive assessed 01/14/25 01/14/25 11:43 Coding
--- OUTSIDE RECORDS SUMMARY | 2025-01-14 14:18 | XMS_ITS ---
Author Organization [facility] Address [address] [place] [id number] Care Team Providers Care Software Database Architect Name Role Phone Leah WARD, Benjamin Primary Care Provider Unavaila Dasha Merlos Unavailable [phone] Auguste Encounters Encounter Location Date Provider Diagnosis [address] [address] 11/29/2024 Dasha Gonzalez Plan Of Treatment Next Appt Details Provider Name:Dasha Gonzalez , 02/24/2025 01:30:00 PM, [address] [place] [address], [phone], Provider Name:Dasha Gonzalez , 05/26/2025 08:15:00 AM, [address] [place] [address], [phone], Progress Notes * Silke QUINONESOB:[birth year] (84 yo F)Acc No.[id number]:11/29/2024 Progress Note Patient:?Leora QUINONES Provider:?Dasha Gonzalez DPM :1940???Age:84 Y???Sex:Female D ate:11/29/2024 Address:[address] [place] [phone] Pcp:Benjamin Lynn MD Subjective: * Chief Complaints: * ???1. Dr Auguste. * Medical History:? Objective: * Vitals:? Assessment: Plan: * Treatment: * Images: * The named appointment provid er may or may not be the originator of this progress note, and it is not deemed complete until electronically signed by the appointment provider. Sign off status: Pending * Provider:Jesse Gonzalez DPM Date:?2024 Generated for Darwin norton/Jerald/Ese on:?01/14/2025 02:17 PM EDT
--- OUTSIDE RECORDS SUMMARY | 2025-01-14 14:18 | XMS_ITS ---
Author Organization [facility] [place] Address [address] [place] [address] Care Team Providers Care Human Resources Recruiter Name Role Phone Benjamin Lynn MD Primary Care Provider Unavaila ble Black, Dasha Unavailable [phone] Allergies Allergen (clinical drug ingredient) Drug/Non Drug Allergy documented on EMR Reaction Allergy Type Onset Date Status Seasonal IC Unknown Drug Allergy Activ e doxycycline Doxycycline vomiting, itchy Drug Allergy Active REASON FOR VISIT At Risk Footcare Medications Medication SIG (Take, Route, Frequency, Duration) Notes Start Date End Date Status Lisinopril 5 MG 1 tablet Orally Once a day for 30 day(s) Active Aspirin 81 MG 1 tablet Orally Once a day for 30 day(s) Active Plavix 75 MG 1 tablet Orally Once a day Not-Taking Vitamin D (Cholecalciferol) Active Social History Tobacco Use: Social History Observation Description Date Details (start date - stop date) Never Smoker NA - NA Tobacco Use/Smoking Question Answer Notes Are you a: nonsmoker Additional Findings: Tobacco Non-User Current no n-smoker Tobacco use other than smoking: Question Answer Notes Are you an other tobacco user? No Problems Problem Type SNOMED Code ICD Code Onset Dates Problem Status W/U Status Risk Notes Problem Other hammer toe(s) (acquired), right foot (M20.41) Active confirmed Response to treatment,Imp rovement Vital Signs Height 5 ft 6 in in 12/20/2024 Weight 201 lbs 12/20/2024 BMI 32.44 kg/m2 12/20/2024 Blood pressure systolic 130 mm Hg 12/21/19 25 Blood pressure diastolic 80 mm Hg 025 Procedures Procedure Date Ordered Date Performed Result Body Sit e 87990-ONUODXJ NAIL, 6 OR MORE 12/20/2024 N/A 57082-ZYVQ SKIN LESIONS, OVER 4 12/20/2024 N/A Encounters Encounter Location Date Provider Diagnosis [facility] [address] [address] 12/20/2024 Dasha Gonzalez Type 2 diabetes mellitus with diabetic polyneuropathy E11.42 and Tinea unguium B35.1 Assessments Encounter Date Diagnosis (ICD Code) Assessment Notes Treatment Notes Treatment Clinical Notes Section Notes 12/20/2024 Type 2 diabetes mellitus with diabetic polyneuropathy (ICD-10 - E11.42) 12/20/2024 Tinea unguium (ICD-10 - B35.1) Plan Of Treatment Pending Test Test Name Order Date 38444-CGABSNA NAIL, 6 OR MORE 12/20/2024 38526-GHJE SKIN LESIONS, OVER 4 12/21/19 25 Next Appt Details Follow Up: prn, Reason: Provider Name:Dasha Gonzalez , 02/24/2025 01:30:00 PM, [address] [place] [address], [phone], Provider Name:Dasha Gonzalez , 05/26/2025 08:15:00 AM, [address] [place] [address], [phone], Procedure Notes * Category Sub-Category Detail Notes Debride Nail 6-10 Nail debridement Due to the cl inical pathology outlined in the exam findings, performance of this nail treatment is medically necessary as its management by an unskilled/untrained nonprofessional would put this patients foot and overall health at risk. Therefore, debridement to affected nail(s), as described in exam ( T5, T6, T7, T8, T9, , TA, T1, T3, ), was performed exclusively by the physician of record to reduce/remove overall nail length, girth, thickness, subungual debris, and necrotic tissue, by manual and/or electrical means through the use of a nail nipper and/or dremel-type thread grinder, to a more viable healthy nail plate or bed tissue 6-10 nails in total. Silver nitrate was used for any petechial bleeding as necessary. Definitive antifungal treatment options, both pharmaceutical and surgical, have been reviewed and discussed with the patient. The patient solely prefers the use of intermittent/as needed professional debridement services for their nail condition and understands the need for additional periodic treatments to maintain effectiveness in symptomatic relief - 24777 Keratoma Treatment Parring or Cutting o f Benign Hyperkeratotic Lesion(s) (-57) More than 4 Lesions - Due to the at risk nature of the patients medical condition as documented in the exam findings, performance of this keratoderma treatment is medically necessary as its management by an unskilled/untrained nonprofessional would put this patients foot and overall health at risk. Therefore, the benign hyperkeratotic lesions, ( 5 ) in total, locations as stated and described in the exam ( plantar Heel(s) B/L , , SUB MTH (s) 3, , B/L , T4 ), were pared, and/or cut utilizing a sterile 15 blade, tissue nippers, and/or power dremel instrumentation by the physician of record - 24900 Progress Notes * Silke QUINONESOB:[birth year] (84 yo F)Acc No.[id number]:12/20/2024 Progress Note Patient:?Leora QUINONES Provider:?Dasha Gonzalez DPM :1940???Age:84 Y???Sex:Female D ate:12/20/2024 Address:[address] [place] [phone] Pcp:Benjamin Lynn MD Subjective: * Chief Complaints: * ???At Risk Footcare * HPI: ???At Risk footcare:?Pt States Last PCP Visit:?Date?10/21/2024 * ROS:?General/Constitutional:?Nausea?denies.?Vomiting?denies.?Hunger Thirst?denies.?Loss appetite?denies.?Chills?denies.?Fatigue?denies.?Fever?denies.?Night Sweats?denies.?Unexplained weight loss?denies.?Unexplained weight gain?denies.?HEENTM:?Dentures?denies.?Dizziness?denies.?Glasses/contacts?denies.?Retinopathy?den ies.?Blurred/double vision?denies.?TMJ?denies.?Discharge/drainage?denies.?Implants?denies.?Sore throat?denies.?Dental implants?denies.?Hard of hearing ?denies.?Difficulty chewing/swallowing/speaking?denies.?Nose bleeds?denies.?Sore mouth?denies.?Respiratory:?On O xygen?denies.?Pneumonia/pleurisy?denies.?Bronchitis?denies.?Emphysema?denies.?Co ughing?denies.?Cough blood?denies.?Shortness of breath?denies.?Wheezing?denies.?Cardiovascular:?Pacemaker?denies.?MVP?denies.?WPW?denies.?CHF?denies.?Heart attack?denies.?Septal defect?denies.?Rapid beat?denies.?Chest pain ?denies.?Atrial Fib.?denies.?Murmur/Palpitations?denies.?Gastrointestinal:?Hemorrhoids?denies.?Stomach/Abdominal pain?denies.?Dark blood stool?denies.?Irritable bowel ?denies.?Constipation?denies.?Diarrhea?denies.?Hematology:?Swelling?denies.?Clots?denies.?Varicose Veins?denies.?Bruising?denies.?Bleeding problem?denies.?Genitourinary:?Blood urine?denies.?Frequent/Painfu/urination/bladder control?denies.?Kidney stones?denies.?Infection (UTI)?denies.?Nephropathy?denies.?sex trans dis (STD)?denies.?Prostate?denies.?Musculoskeletal:?Hammertoes?, admits.?Bunions?admits.?Back Pain?denies.?Muscle Cramps/ Resting?denies.?Muscle cramps / walking?denies.?Generalized aches and pains?denies.?Weakness?denies.?Integ.:?Bearden?denies.?Scars?denies.?Corns/calluses?, admits.?Ingrown nails?denies.?Painful nails?, denies.?Open Sores?denies.?Rashes?denies.?Neurologic:?Difficulty sleeping?denies.?Brain disorder?denies.?Numbness?denies.?Balance t rouble?denies.?Confusion?denies.?Fainting/blackouts?denies.?Tingling?denies.?Carrillo mors?denies.? * Medical History:? * Surgical History:?tonsillect niall cholecystectomy hysterectomy appendectomy cataract surgery OS 12/20/2013left cheek cancer removed 10/2014detached retina 06/29/2019basal cell removal 09/07/2019detached retina repair 10/25/2020Heart Valve 03/07/22 * Hospitalization/Major Diagno stic Procedure:?Denies Past Hospitalization * Family History:?Mother: dece ased, diagnosed with Other malignant neoplasm of unspecified site.?Father: , diagnosed with Unspecified essential hypertension.?Spouse: .? * Social History:?Tobacco Use:?Tobacco Use/Smoking?Are you a:?nonsmoker ?Additional Findings: Tobacco Non-User?Current non-smoker ?Tobacco use other than smoking?Are you an other tobacco user??No ???Miscellaneous:?Caffeine: yes, frequency:, 2-3 cups tea per day. ?Children: yes. ?Exercise: yes, walking , senior center. ?Marital status: . 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 * Medications:?TakingAspirin 8 1 MG Tablet Delayed Release 1 tablet Orally Once a day Lisinopril 5 MG Tablet 1 tablet Orally Once a day Vitamin D (Cholecalciferol) Taking Aspirin 81 MG Tablet Delayed Release 1 tablet Orally Once a day Taking Lisinopril 5 MG Tablet 1 tablet Orally Once a day Taking Vitamin D (Cholecalciferol) Not-Taking/PRNPlavix 75 MG Tablet 1 tablet Orally Once a day Medication List reviewed and reconciled with the patientNot-Taking/PRN Plavix 75 MG Tablet 1 tablet Orally Once a day Medication List reviewed and reconciled with the patient * Allergies:?Seasonal ICDoxycy wright: vomiting, itchyyes[Allergies Verified] Objective: * Vitals:?Ht: 5 ft 6 in, Wt: 2 01, BMI: 32.44, Shoe size: 8, BP: 130/80 mm Hg, BS: not taken, Ht-cm: 167.64 cm, Wt-k.17 kg. * ???Past Orders: ???Lab:HEMOGLOBIN A1C (GLYCO HEMOGLOBIN) (Order Date - 06/08/2024) (Collection Date & Time - 06/08/2024 01:50 PM) ? Value Reference Range ?HEMOGLOBIN A1C % (HH) 6.2 * Examination: ???Ophthalmology Referral: ?DIABETES EYE EXAM?Procedure Performed:?Yes ?Date of Exam Performed?05/09/2024 ?Findings of Diabetic Eye Exam:?no retinopathy?General Examination: ?GENERAL APPEARANCE:?Reveals a pleasant, alert, well nourished, well- developed, well hydrated individual, who demonstrates proper attention to hygiene/body habitus, and is in no acute distress, Pt serves as own historian for office visit today.?Neurological: ?SENSORY:?Neurological exam demonstrates , reduced light touch sensation , reduced sharp/dull pin prick discrimination , reduced vibration sensation , reduced , at Forefoot , B/L.?Nails: ?NAILS are:?elongated,overgrown,dystrophic,greater than 3mm thick,discolored and friable with crumbly malodorous subungual debris, with dull to no pain on palpation due to neuropathy, T5, T6, T7, T8, T9, , TA, T1, T3, .?Dermatologic: ?SKIN FINDINGS:?Skin exam reveals Keratotic lesion(s) located at?plantar?Heel(s) B/L , , SUB MTH (s) 3, , B/L , T4 ,.? Assessment: * Assessment: 1.?Type 2 diabetes mellitus with diabetic polyneuropathy - E11.42 (Primary)???2.?Tinea unguium - B35.1??? Plan: * Treatment: 2.?Tinea unguium?Procedure: 38427-DMEJEQY NAIL, 6 OR MORE * Procedures:?Debride Nail 6-10:?Nail debridement?Due to the clinical pathology outlined in the exam findings, performance of this nail treatment is medically necessary as its management by an unskilled/untrained nonprofessional would put this patients foot and overall health at risk. Therefore, debridement to affected nail(s), as described in exam ( T5, T6, T7, T8, T9, , TA, T1, T3, ), was performed exclusively by the physician of record to reduce/remove overall nail length, girth, thickness, subungual debris, and necrotic tissue, by manual and/or electrical means through the use of a nail nipper and/or dremel-type thread grinder, to a more viable healthy nail plate or bed tissue 6-10 nails in total. Silver nitrate was used for any petechial bleeding as necessary. Definitive antifungal treatment options, both pharmaceutical and surgical, have been reviewed and discussed with the patient. The patient solely prefers the use of intermittent/as needed professional debridement services for their nail condition and understands the need for additional periodic treatments to maintain effectiveness in symptomatic relief - 19924.?Keratoma Treatment:?Parring or Cutting of Benign Hyperkeratotic Lesion(s)?(-57) More than 4 Lesions - Due to the at risk nature of the patients medical condition as documented in the exam findings, performance of this keratoderma treatment is medically necessary as its management by an unskilled/untrained nonprofessional would put this patients foot and overall health at risk. Therefore, the benign hyperkeratotic lesions, ( 5 ) in total, locations as stated and described in the exam ( plantar Heel(s) B/L , , SUB MTH (s) 3, , B/L , T4 ), were pared, and/or cut utilizing a sterile 15 blade, tissue nippers, and/or power dremel instrumentation by the physician of record - 13855.? * Procedure Codes:?46916 DEBRI DE NAIL, 6 OR MORE, Modifiers: XS 39324 TRIM SKIN LESIONS, OVER 4, Modifiers: XS * Follow Up:?prn * Images: * Sign off status: Completed true * Provider:?Dasha Gonzalez DPM Date:?2024 Generated for Darwin norton/Jerald/Ese on:?01/14/2025 02:17 PM EDT History and Physical Notes * HPI (History of Present Illness) Category Sub-Category Detail Notes Category Not es At Risk footcare Pt States Last PCP Visit: Date: 5 Examination Category Sub-Category Detail Notes Category Not es Neurological SENSORY: Neurological exa m demonstrates , reduced light touch sensation , reduced sharp/dull pin prick discrimination , reduced vibration sensation , reduced , at Forefoot , B/L Dermatologic SKIN FINDINGS: Skin exam reveal s Keratotic lesion(s) located at plantar Heel(s) B/L , , SUB MTH (s) 3, , B/L , T4 , VERRUCA: Orthopedic DIGITAL DEFORMITIES: General Examination GENERAL APPEARANCE: Reveals a pleasant, alert, well nourished, well-developed, well hydrated individual, who demonstrates proper attention to hygiene/body habitus, and is in no acute distress, Pt serves as own historian for office visit today Ophthalmology Referral DIABETES EYE EXAM Procedure Perform ed:: Yes ?Date of Exam Performed: 05/09/2024 Findings of Diabetic Eye Exam:: no retin opathy Nails NAILS are: elongated,overgr own,dystrophic,greater than 3mm thick,discolored and friable with crumbly malodorous subungual debris, with dull to no pain on palpation due to neuropathy, T5, T6, T7, T8, T9, , TA, T1, T3,
--- OUTSIDE RECORDS SUMMARY | 2025-01-14 14:18 | XMS_ITS ---
Author Organization [facility] Address [address] [place] [address] Care Team Providers Care Manager Decision Support Name Role Phone Leah WARD, Benjamin Primary Care Provider Unavaila Dasha Merlos Unavailable [phone] REASON FOR VISIT too soon Encounters Encounter Location Date Provider Diagnosis [address] [address] 11/15/2024 Dasha Gonzalez Plan Of Treatment Next Appt Details Provider Name:Dasha Gonzalez , 02/24/2025 01:30:00 PM, [address] [place] [address], [phone], Provider Name:Dasha Gonzalez , 05/26/2025 08:15:00 AM, [address] [place] [address], [phone], Progress Notes * Silke QUINONESOB:[birth year] (84 yo F)Acc No.[id number]:11/15/2024 Progress Note Patient:?Leora QUINONES Provider:?Dasha Gonzalez DPM :1940???Age:84 Y???Sex:Female D ate:11/15/2024 Address:[address] [place] [phone] Pcp:Benjamin Lynn MD Subjective: * Chief Complaints: * ???1. Too soon. * Medical History:? Objective: * Vitals:? Assessment: [...]
--- OUTSIDE RECORDS SUMMARY | 2025-01-14 14:18 | XMS_ITS | Patient Health Record ---
Author Organization [facility] Address [address] [place] [address] Care Team Providers Care Telephone Order Clerk Room Service Name Role Phone Benjamin Lynn MD Primary Care Provider Unavaila ble Dasha Gonzalez Unavailable [phone] Allergies Allergen (clinical drug ingredient) Drug/Non Drug Allergy documented on EMR Reaction Allergy Type Onset Date Status Seasonal IC Unknown Drug Allergy Activ e doxycycline Doxycycline vomiting, itchy Drug Allergy Active Results Component Value Reference Range Notes *Uric Acid, Serum Reviewed date:03/01/2024 12:19:55 PM Interpretation:High Performing Lab: Notes/Report: High Uric Acid, Serum 7.1 HEMOGLOBIN A1C (GLYCOHEMOGLO BIN) Reviewed date:09/20/2024 01:51:37 PM Interpretation: Performing Lab: Notes/Report: HEMOGLOBIN A1C % (HH) 6.2 Reason For Referral No Information Medications Medication SIG (Take, Route, Frequency, Duration) Notes Start Date End Date Status Lisinopril 5 MG 1 tablet Orally Once a day for 30 day(s) Active Aspirin 81 MG 1 tablet Orally Once a day for 30 day(s) Active Plavix 75 MG 1 tablet Orally Once a day Not-Taking Vitamin D (Cholecalciferol) Active Immunizations Vaccine Route Administration Date Status Comme nts COVID-19 Pfizer BioNTech Vaccine Unknown 07/08/2021 Administered First Dose: 09/27/20 Second Dose: 10/18/2020 Influenza Unknown 08/19/2016 Administered Influenza Unknown 05/26/2017 Administered Influenza Unknown 06/04/2018 Administered Influenza Unknown 06/08/2019 Administered Influenza Unknown 06/08/2020 Administered Influenza Unknown 06/08/2021 Administered Influenza Unknown 07/09/2022 Administered Influenza Unknown 06/09/2023 Administered Influenza Unknown 07/09/2023 Administered Social History Tobacco Use: Social History Observation Description Date Details (start date - stop date) Never Smoker NA - NA Tobacco Use/Smoking Question Answer Notes Are you a: nonsmoker Additional Findings: Tobacco Non-User Current no n-smoker Alcohol Screen Question Answer Notes Did you have a drink containing alcohol in the p ast year? No Points 0 Interpretation Negative Tobacco use other than smoking: Question Answer Notes Are you an other tobacco user? No Problems Problem Type SNOMED Code ICD Code Onset Dates Problem Status W/U Status Risk Notes Problem Acquired hammer toe of right foot (127758595534915 5) Other hammer toe(s) (acquired), right foot (M20.41) Active confirmed Response to treatment,Im provement Problem Viral wart (49780242) Other viral warts (B07.8) Active confirmed Problem Polyneuropathy due to type 2 diabetes mellitus (096310486) Type 2 diabetes mellitus with diabetic polyneuropathy (E11.42) Active confirmed Problem Localized, primary osteoarthritis of the ankle and/or foot (430075659) Primary osteoarthritis, right ankle and foot (M19.071) Active confirmed Problem Acquired hallux valgus (68260225) Hallux valgus (acquired), left foot (M20.12) Active confirmed Problem Acquired hammer toe of left foot (897561346893155 3) Other hammer toe(s) (acquired), left foot (M20.42) Active confirmed Response to treatment - Improvement Problem Gout (50013747) 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) Active confirmed Response to treatment - Improvement Problem Localized, primary osteoarthritis of the ankle and/or foot (464075939) Arthritis of joint of lesser toe, left (M19.072) Active confirmed Problem Idiopathic gout (19736166) Acute idiopathic gout involving toe of left foot (M10.072) Active confirmed Vital Signs Blood pressure diastolic 80 mm Hg 12/20/2024 Height 5 ft 6 in in 12/20/2024 Blood pressure systolic 130 mm Hg 12/20/2024 Weight 201 lbs 12/20/2024 BMI 32.44 kg/m2 12/20/2024 Procedures Procedure Date Ordered Date Performed Result Body Sit e 63365-HNPFZLB NAIL, 6 OR MORE 03/01/2024 N/A 70689-VBDI SKIN LESIONS, OVER 4 03/01/2024 N/A 53495-JSTNXZS NAIL, 6 OR MORE 05/03/2024 N/A 78386-MKAW SKIN LESIONS, OVER 4 05/03/2024 N/A 15903-KZREFRG NAIL, 6 OR MORE 07/05/2024 N/A 31583-FKGJ SKIN LESIONS, OVER 4 07/05/2024 N/A 62106-VPWJBBM NAIL, 6 OR MORE 09/20/2024 N/A 77513-YVVX SKIN LESIONS, OVER 4 09/20/2024 N/A 96160-LUHZAHU NAIL, 6 OR MORE 12/20/2024 N/A 92084-XZER SKIN LESIONS, OVER 4 12/20/2024 N/A Encounters Encounter Location Date Provider Diagnosis [address] [address] 03/01/2024 Dasha Black Type 2 diabetes mellitus with diabetic polyneuropathy E11.42 ; Gout of left foot M10.9 ; Tinea unguium B35.1 ; Pain in right toe(s) M79.674 ; Pain in left toe(s) M79.675 and Pain in joint involving left ankle and foot M25.[address] [address] 05/03/2024 Dasha Black Other hammer toe(s) (acquired), left foot M20.42 ; Gout of left foot M10.9 ; Type 2 diabetes mellitus with diabetic polyneuropathy E11.42 ; Tinea unguium B35.1 ; Pain in left toe(s) M79.675 ; Pain in joint involving left ankle and foot M25.572 ; Pain in left toe(s) M79.675 ; Arthritis of joint of lesser toe, left M19.072 and Xerosis of skin L85.[address] [address] 07/05/2024 Dasha Black Other hammer toe(s) (acquired), left foot M20.42 ; Type 2 diabetes mellitus with diabetic polyneuropathy E11.42 ; Tinea unguium B35.1 ; Pain in left toe(s) M79.675 ; Arthritis of joint of lesser toe, left M19.072 and Xerosis of skin L85.[address] [address] 09/20/2024 Dasha Gonzalez Other hammer toe(s) (acquired), left foot M20.42 ; Type 2 diabetes mellitus with diabetic polyneuropathy E11.42 ; Tinea unguium B35.1 and Arthritis of joint of lesser toe, left M19.[address] [address] 12/20/2024 Dasha Gonzalez Type 2 diabetes mellitus with diabetic polyneuropathy E11.42 and Tinea unguium B35.[address] [address] 03/01/2024 Dasha Gonzalez Assessments Encounter Date Diagnosis (ICD Code) Assessment Notes Treatment Notes Treatment Clinical Notes Section Notes 03/01/2024 Type 2 diabetes mellitus with diabetic polyneuropathy (ICD-10 - E11.42) 03/01/2024 Gout of left foot (ICD-10 - M10.9) Rx drug management (4) Patient Educated with: GOUT.pdf (GOUT.pdf) Patient Educated with: LOW PURINE DIET.pdf (LOW PURINE DIET.pdf) 05/03/2024 Other hammer toe(s) (acquired), left foot (ICD-10 - M20.42) 05/03/2024 Gout of left foot (ICD-10 - M10.9) Response to treatment - Improvement Patient Educated with: GOUT.pdf (GOUT.pdf) Patient Educated with: LOW PURINE DIET.pdf (LOW PURINE DIET.pdf) 07/05/2024 Type 2 diabetes mellitus with diabetic polyneuropathy (ICD-10 - E11.42) 07/05/2024 Other hammer toe(s) (acquired), left foot (ICD-10 - M20.42) Resistant to previous conservative treatment 09/20/2024 Type 2 diabetes mellitus with diabetic polyneuropathy (ICD-10 - E11.42) 09/20/2024 Other hammer toe(s) (acquired), left foot (ICD-10 - M20.42) Response to treatment - Improvement 12/20/2024 Type 2 diabetes mellitus with diabetic polyneuropathy (ICD-10 - E11.42) 12/20/2024 Tinea unguium (ICD-10 - B35.1) 09/20/2024 Tinea unguium (ICD-10 - B35.1) 07/05/2024 Tinea unguium (ICD-10 - B35.1) 05/03/2024 Type 2 diabetes mellitus with diabetic polyneuropathy (ICD-10 - E11.42) 03/01/2024 Tinea unguium (ICD-10 - B35.1) 03/01/2024 Pain in right toe(s) (ICD-10 - M79.674) 05/03/2024 Tinea unguium (ICD-10 - B35.1) 09/20/2024 Arthritis of joint of lesser toe, left (ICD-10 - M19.072) 07/05/2024 Pain in left toe(s) (ICD-10 - M79.675) 07/05/2024 Arthritis of joint of lesser toe, left (ICD-10 - M19.072) 05/03/2024 Pain in left toe(s) (ICD-10 - M79.675) 03/01/2024 Pain in left toe(s) (ICD-10 - M79.675) 03/01/2024 Pain in joint involving left ankle and foot (ICD-10 - M25.572) 07/05/2024 Xerosis of skin (ICD-10 - L85.3) 05/03/2024 Pain in joint involving left ankle and foot (ICD-10 - M25.572) 05/03/2024 Pain in left toe(s) (ICD-10 - M79.675) 05/03/2024 Arthritis of joint of lesser toe, left (ICD-10 - M19.072) 05/03/2024 Xerosis of skin (ICD-10 - L85.3) 03/01/2024 Other 05/03/2024 Other 07/05/2024 Other Plan Of Treatment Pending Test Test Name Order Date 20129-IFCFPYD NAIL, 6 OR MORE 01/25/2013 72213-VJYPZQV NAIL, 6 OR MORE 04/29/2013 09926-BJIPYZB NAIL, 6 OR MORE 06/17/2013 73025-RYXHHHE NAIL, 6 OR MORE 08/09/2013 71086-OCGPZGN NAIL, 6 OR MORE 12/06/2013 74020-DXKLCKG NAIL, 6 OR MORE 02/02/2014 16387-SEEXMLB NAIL, 6 OR MORE 05/05/2014 64010-SHMXRPS NAIL, 6 OR MORE 07/27/2014 81990-IPGFXGL NAIL, 6 OR MORE 10/05/2014 14511-VSTDXIY NAIL, 6 OR MORE 12/09/2014 92618-UWLXLQL NAIL, 6 OR MORE 02/20/2015 40347-IIKPEDF NAIL, 6 OR MORE 2015 21351-TEHVHXN NAIL, 6 OR MORE 08/10/2015 09268-DEYQYHX NAIL, 6 OR MORE 11/09/2015 68853-CXFCSZJ NAIL, 6 OR MORE 02/12/2016 46630-XKDWYZN NAIL, 6 OR MORE 05/27/2016 62804-SDHDAWH NAIL, 6 OR MORE 08/21/2016 94041-KIHOSVM NAIL, 6 OR MORE 11/04/2016 44441-WDVYEGG NAIL, 6 OR MORE 01/06/2017 90033-JNTMQSD NAIL, 6 OR MORE 04/10/2017 29026-VBDNGBM NAIL, 6 OR MORE 06/19/2017 29682-LAHFRZQ NAIL, 6 OR MORE 08/21/2017 95409-YDZZUSX NAIL, 6 OR MORE 10/30/2017 03987-DIRXMWI NAIL, 6 OR MORE 01/08/2018 28607-HUMYAAI NAIL, 6 OR MORE 03/26/2018 96682-PVKTSPG NAIL, 6 OR MORE 06/18/2018 63287-GTBLTGR NAIL, 6 OR MORE 09/17/2018 04701-RKBOWST NAIL, 6 OR MORE 11/19/2018 52990-DDVLHHI NAIL, 6 OR MORE 01/28/2019 75711-RDKQZNS NAIL, 6 OR MORE 04/22/2019 14505-XPOTBBL NAIL, 6 OR MORE 06/24/2019 54340-SAJDKXB NAIL, 6 OR MORE 09/13/2019 36710-DBPHRUS NAIL, 6 OR MORE 11/18/2019 38076-NTXOCOI NAIL, 6 OR MORE 02/17/2020 11434-BNCNGTG NAIL, 6 OR MORE 05/22/2020 16546-YVKYXNB NAIL, 6 OR MORE 08/21/2020 63936-NCSVGXP NAIL, 6 OR MORE 02/15/2021 44944-QOJDQCF NAIL, 6 OR MORE 05/09/2021 84559-NEGKRBF NAIL, 6 OR MORE 08/09/2021 88065-YIXGYPU NAIL, 6 OR MORE 10/25/2021 31744-JLOMSMU NAIL, 6 OR MORE 01/03/2022 80295-ZIUYTTW NAIL, 6 OR MORE 03/26/2022 04536-YGQORLO NAIL, 6 OR MORE 06/06/2022 44963-HOGHZZU NAIL, 6 OR MORE 08/19/2022 22234-KSVULEB NAIL, 6 OR MORE 11/11/2022 46677-WGZTOBW NAIL, 6 OR MORE 01/23/2023 57998-YPYQGMN NAIL, 6 OR MORE 04/03/2023 10690-ORIHJTS NAIL, 6 OR MORE 06/05/2023 22768-KCVGOMQ NAIL, 6 OR MORE 08/07/2023 58397-VTKKDFH NAIL, 6 OR MORE 10/09/2023 13128-GMLOZTI NAIL, 6 OR MORE 12/11/2023 37308-EGPLEDX NAIL, 6 OR MORE 03/01/2024 54048-HNVYTLN NAIL, 6 OR MORE 05/03/2024 50290-WOMTOUA NAIL, 6 OR MORE 07/05/2024 71314-CWRBYEE NAIL, 6 OR MORE 09/20/2024 72602-KECTOTZ NAIL, 6 OR MORE 12/20/2024 44947-Orqi Destruction, -14 01/25/2013 67041-Nlvl Destruction, -14 06/24/2019 16698-Kmlf Destruction, -14 10/05/2014 89231-Qeaw Destruction, -14 07/27/2014 08837-Gcza Destruction, -14 02/02/2014 23312-Elwq Destruction, -14 12/06/2013 07005-Ryzk Destruction, -14 08/09/2013 31060-Ceaf Destruction, -14 09/29/2013 15031-Jvzb Destruction, -14 06/17/2013 21835-Bknh Destruction, -14 04/29/2013 06880-Htix Destruction, -14 04/07/2013 92688-YWCD SKIN LESIONS, OVER 4 12/21/19 25 43658-AXOE SKIN LESIONS, OVER 4 09/20/19 25 58216-HTWX SKIN LESIONS, OVER 4 07/05/20 80481-KMHX SKIN LESIONS, OVER 4 05/03/20 64612-QCEK SKIN LESIONS, OVER 4 03/01/20 03182-ZSIO SKIN LESIONS, OVER 4 12/11/19 Next Appt Details Provider Name:Dasha Gonzalez , 02/24/2025 01:30:00 PM, [address] [place] [address], [phone], Provider Name:Dasha Gonzalez , 05/26/2025 08:15:00 AM, [address] [place] [address], [phone], Insurance Providers Payer Name Payer Address Payer Phone Subscriber Number Group Number Insured Name Patient Relationship to Insured Coverage Start Date Coverage End Date Medicare National [employer]t [employer] [address] [facility] [place] [address] [id number] Leora Quinones Self - patient is the insured 3 Prot-On ([facility]) [address] [place] [phone] [id number] Leora Quinones Self - patient is the insured Medical (General) History Medical History History ICD Code cataracts diabetic type 2 high blood pressure chicken pox measles Surgical History Surgery Date(Month/Year) tonsillectomy cholecystectomy hysterectomy appendectomy cataract surgery OS 12/20/2013 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
--- OUTSIDE RECORDS SUMMARY | 2025-01-14 14:18 | XMS_ITS | Clinical Summary ---
Author Organization [facility] it[facility] Address [address] [place] [address] Care Team Providers Care Creeler Name Role Phone Benjamin Lynn MD Primary Care Provider [phone] Surgical History Surgery Date Site/Laterality Comments TONSILLECTOMY PROCEDURE: HISTORICAL TONSILLECTOMY APPENDECTOMY PROCEDURE: HISTORICAL APPENDECTOMY CHOLECYSTECTOMY PROCEDURE: HISTORICAL CHOLECYSTECTOMY HYSTERECTOMY PROCEDURE: HISTORICAL HYSTERECTOMY KNEE ARTHROSCOPY PROCEDURE: TX ARTHROSCOPY AID TX SPINE&/FX KNEE W/O FIXJ Medical History Medical History Date Comments Essential hypertension DX:Essent ial hypertension Family History Medical History Relation Name Comments Heart failure Father age 92 Other cancer Mother age 51 Relation Name Status Comments Father Mother Social History Tobacco Use Types Packs/Day Years Used Date Smoking Tobacco: Never Smokeless Tobacco: Never Alcohol Use Standard Drinks/Week Comments Not Currently 0 (1 standard drink = 0.6 oz pur e alcohol) Comments Unknown Sex and Gender Information Value Date Recorded Sex Assigned at Not on file Legal Sex Female 12:41 PM EST Gender Identity Not on file Sexual Orientation Not on file Obstetrics History Last Filed Vital Signs Vital Sign Reading Time Taken Comments Blood Pressure 142/68 04/08/2023 1:39 PM EDT Sit ting L Arm Pulse 70 04/08/2023 1:39 PM EDT Temperature - - Respiratory Rate - - Oxygen Saturation - - Inhaled Oxygen Concentration - - Weight 90.7 kg (200 lb) 10/08/2023 2:18 PM EST Height 167.6 cm (5' 6 ) 10/08/2023 2:18 PM EST Body Mass Index 32.28 10/08/2023 2:18 PM EST Plan of Treatment Upcoming Encounters Date Type Department Care Team (Late st Contact Info) Description 01/17/2025 10:45 AM EDT Office Visit Orthopedic Surgery [place] [address] [facility] [address] [place] [address] Rashmi Petit PA [address] [facility] [address] [place] [address] Health Maintenance Due Date Last Done Comments DTaP,Tdap,and Td Vaccines (1 - Tdap) 1959 Pneumococcal Vaccine: 50+ Years (1 of 1 - PCV) 1988 RSV Immunization Adult Patients (1 - 1-dose 75+ series) 2013 Cholesterol Screening (Lipid Panel) 08/06/2022 Depression Screening 08/06/2022 Falls Risk Assessment 08/06/2022 Osteoporosis Screening (Bone Density Screening) 08/06/2022 Social Influencers of Health Screening 08/06/2022 Hypertension/CHF/CAD Annual BMP Blood Test 08/18/2022 COVID-19 Vaccine ( season) 2024 12/26/2021, 07/03/2021, 10/18/2020, Additional history exists Influenza Vaccine (Season Ended) 2025 06/20/2021, 05/25/2014, 07/09/2013, Additional history exists Zoster Vaccines Completed 06/21/2020, 02/28/2020 HIB Vaccines Aged Out No longer eligi ble based on patient's age to complete this topic HPV Vaccines Aged Out No longer eligi ble based on patient's age to complete this topic Hepatitis A Vaccines Aged Out No long er eligible based on patient's age to complete this topic Hepatitis B Vaccines Aged Out No long er eligible based on patient's age to complete this topic IPV Vaccines Aged Out No longer eligi ble based on patient's age to complete this topic MMR Vaccines Aged Out No longer eligi ble based on patient's age to complete this topic Meningococcal ACWY Vaccine Aged Out N o longer eligible based on patient's age to complete this topic Meningococcal B Vaccine Aged Out No l onger eligible based on patient's age to complete this topic RSV Immunization Patients Under 20 months Aged Out No longer eligible based on patient's age to complete this topic Varicella Vaccines Aged Out No longer eligible based on patient's age to complete this topic Insurance MEDICARE [facility] Advance Directives Documents on File Type Date Recorded Patient Extra Gang Supervisor Expl anation Health Care Decision (hx) 08/14/2011 AD THOMPSON DIRECTIVE Health Care Decision (hx) 08/14/2011 AD THOMPSON DIRECTIVE Health Care Decision (hx) 08/14/2011 AD THOMPSON DIRECTIVE Health Care Decision (hx) 08/14/2011 AD THOMPSON DIRECTIVE Health Care Decision (hx) 08/14/2011 AD THOMPSON DIRECTIVE Health Care Decision (hx) 08/14/2011 AD THOMPSON DIRECTIVE Health Care Decision (hx) 08/14/2011 AD THOMPSON DIRECTIVE Health Care Decision (hx) 08/14/2011 AD THOMPSON DIRECTIVE Health Care Decision (hx) 08/14/2011 AD THOMPSON DIRECTIVE Health Care Decision (hx) 08/14/2011 AD THOMPSON DIRECTIVE Health Care Decision (hx) 08/14/2011 AD THOMPSON DIRECTIVE Health Care Decision (hx) 08/14/2011 AD THOMPSON DIRECTIVE Care Teams Creeler Relationship Specialty Start Date End Date Benjamin Lynn MD [address] [place] [address] Dr Tony MA PCP - General Internal Medicine 08/17/12
--- NOTE | 2025-01-14 14:59 | A.OFFPC_ITS ---
Vital Signs 01/14/25 15:06 Height 5 ft 6 in Weight 210 lb BMI 33.9 BP 130/72 Respiration 16 Pulse 68 Pulse Source Pulse Oximeter Temp 98.0 F Temp Source Oral Pulse Oximetry (%) 98 Oxygen Delivery Method Room Air Intake Visit Reasons: Routine Infant Nanny Required: No Accompanied by: Self / Same As Patient Allergies doxycycline Allergy (Verified 01/14/25 15:00) lip tingling & SOB Tobacco use date assessed: 01/14/25 Fall risk assessment: No Falls in past year Last assessed Fall Risk: 01/14/25 Dental Screening Dental Screen Date: 01/14/25 Did you have a dental visit in the last 12 months?: Yes Did you have a dental problem in the last 6 months where you did not have access to dental care?: No Was dental information given to patient?: Patient has dentist HPI HPI Comments History of Present Illness Details The patient is an 84 year old female with a past medical history of hypertension, NIDDM, neck pain, s/p TAVR presenting for follow up DM: 01/13/25 A1C 6.3%. No polyuria, polydipsia DM: On lisinopril 5mg daily. blood pressure adequately controlled Low back pain. History of spinal stenosis. Unable to walk to >50 feet while carrying items due to backpain. Has seen orthopedics in the past requires handicap naun. Dermatology-[facility]. ROS see HPI PHYSICAL EXAM: GENERAL: Alert and oriented x 3. NAD EYES: EOMI. Anicteric. HENT: Moist mucous membranes. No scleral icterus. No cervical lymphadenopathy. LUNGS: Clear to auscultation bilaterally. CARDIOVASCULAR: Regular rate and rhythm. No murmur. No JVD. ABDOMEN: Soft, non-tender +bs EXTREMITIES: No edema. Non-tender. SKIN: No rashes or lesions. Warm. NEUROLOGIC: No focal neurological deficits. CN II-XII grossly intact PSYCHIATRIC: Cooperative. Appropriate mood and affect PFSH Medical History FH: cholecystectomy Surgical History History of colonoscopy (~05/19/13) S/P left knee arthroscopy History of appendectomy Heart valve replaced Family History Mother Lymph node cancer Father Heart disease Hypertension Social History Housing: House Patient Tobacco Use Status: Never used Tobacco e-Cigarette/Vaping Use: Never Used service: No Current occupational status: retired Cognitive needs: No Hearing needs: Yes (Bilateral hearing aids) Vision needs: Yes (Reading glasses) Questionnaire PHQ-9 Over the last 2 weeks, how often have you been bothered by any of the following problems? 1. Little interest or pleasure in doing things: not at all 2. Feeling down, depressed, or hopeless: not at all 3. Trouble falling or staying asleep, or sleeping too much: not at all 4. Feeling tired or having little energy: not at all 5. Poor appetite or overeating: not at all 6. Feeling bad about yourself - or that you are a failure or have let yourself or your family down: not at all 7. Trouble concentrating on things, such as reading the newspaper or watching television: not at all 8. Moving or speaking so slowly that other people could have noticed. Or the opposite - being so fidgety or restless that you have been moving around a lot more than usual: not at all 9. Thoughts that you would be better off or of hurting yourself in some way: not at all Total score: 0 Depression Screening Interpretation: Negative Depression Screening Done: Yes 39710 - PHQ-9 Billing: Yes Source: Developed by Drs. Mario Canales, Cynthia Rosales, Fly Ortega and colleagues, with an educational chriss from [employer]. Thrive Questionnaire Date Thrive assessed: 01/14/25 I am a: Patient Within the past 12 months, did the food you bought not last and you didn't have the money to get more?: Never true Do you have trouble paying for medicines?: No Do you have trouble getting transportation to medical appointments?: No Do you have trouble paying your heating and electricity bill?: No Do you have trouble taking care of your child, family member or friend?: No Do you have trouble with day-to-day activities such as bathing, preparing meals, shopping, managing finances, etc.?: No Are you currently unemployed and looking for a job?: No Are you interested in more education?: No THRIVE Score: 0 AUDIT C Alcohol Use Questionnaire (AUDIT-C) 1. How often do you have a drink containing alcohol?: Never 3. How often do you have six or more drinks on one occasion?: Never Total Score: 0 KAYLA-7 AMB Questionnaire KAYLA-7 Date KAYLA - 7 assessed: 01/14/25 Feeling nervous, anxious, or on edge: 0 = Not at all Not being able to stop or control worryin = Not at all Worrying too much about different things: 0 = Not at all Trouble relaxin = Not at all Being so restless that it is hard to sit still: 0 = Not at all Becoming easily annoyed or irritable: 0 = Not at all Feeling afraid as if something awful might happen: 0 = Not at all Total KAYLA-7 score (0-4 normal; 5-9 mild; 10-14 moderate; 15-21 severe): 0 Source: Developed by Drs. Mario Canales, Cynthia Rosales, Fly Ortega and colleagues, with an educational chriss from [employer]. Physical exam (Primary Care) Vital Signs: Last Vital Signs Temp 98.0 F 01/14/25 15:06 Pulse 68 01/14/25 15:06 Resp 16 01/14/25 15:06 BP 130/72 01/14/25 15:06 Pulse Ox 98 01/14/25 15:06 Oxygen Delivery Method Room Air 01/14/25 15:06 BMI result Body Mass Index 33.9 Tobacco/Smoking Status: Tobacco use Status Tobacco use date assessed 01/14/25 01/14/25 15:00 Patient Tobacco Use Status Never used Tobacco 01/14/25 15:00 e-Cigarette/Vaping Use Never Used 01/14/25 15:00 PHQ-9: PHQ-9 Score PHQ-9: Total score 0 01/14/25 15:06 Depression Screening Interpretation: Negative Thrive Assessment: Date of Thrive Assessment Date Thrive assessed 01/14/25 01/14/25 15:00 Coding Level of Care Code New Pt Level 4 (91518) Diagnoses Chronic bilateral low back pain, unspecified whether sciatica present M54.50; G89.29 Chronicity: chronic Back pain laterality: bilateral Sciatica presence: unspecified whether sciatica present Type 2 diabetes mellitus without complication, without long-term current use of insulin E11.9 Diabetes mellitus type: type 2 Diabetes mellitus termite control service representative insulin use: without termite control service representative use Diabetes mellitus complication status: without complication Primary hypertension I10 Hypertension type: primary hypertension Additional Codes PHQ-9 - 22583 - PHQ-9 Billing: Yes ([id number]) Assessment & Plan Assessment & Plan (1) Low back pain: Code(s): M54.50 - Low back pain, unspecified Category: Medical Qualifiers: Chronicity: chronic Back pain laterality: bilateral Sciatica presence: unspecified whether sciatica present Qualified Code(s): M54.50 - Low back pain, unspecified; G89.29 - Other chronic pain (2) Diabetes mellitus: Code(s): E11.9 - Type 2 diabetes mellitus without complications Category: Medical Qualifiers: Diabetes mellitus type: type 2 Diabetes mellitus termite control service representative insulin use: without termite control service representative use Diabetes mellitus complication status: without complication Qualified Code(s): E11.9 - Type 2 diabetes mellitus without complications (3) Hypertension: Code(s): I10 - Essential (primary) hypertension Category: Medical Qualifiers: Hypertension type: primary hypertension Qualified Code(s): I10 - Essential (primary) hypertension Plan 84 yo to establish care pmh,surgical,social reviewed DM-well controlled off medications Blood pressure well controlled on medication Orders: Orders TSH reflex Free T4 01/14/25 E11.9 - Type 2 diabetes mellitus without complications, I10 - Essential (primary) hypertension, M54.50 - Low back pain, unspecified, Z95.2 - Presence of prosthetic heart valve Complete Blood Count Auto Diff 01/14/25 E11.9 - Type 2 diabetes mellitus without complications, I10 - Essential (primary) hypertension, M54.50 - Low back pain, unspecified, Z95.2 - Presence of prosthetic heart valve Comprehensive Met. Panel 01/14/25 E11.9 - Type 2 diabetes mellitus without complications, I10 - Essential (primary) hypertension, M54.50 - Low back pain, unspecified, Z95.2 - Presence of prosthetic heart valve Lipid Panel 01/14/25 E11.9 - Type 2 diabetes mellitus without complications, I10 - Essential (primary) hypertension, M54.50 - Low back pain, unspecified, Z95.2 - Presence of prosthetic heart valve Hemoglobin A1c 01/14/25 E11.9 - Type 2 diabetes mellitus without complications, I10 - Essential (primary) hypertension, M54.50 - Low back pain, unspecified, Z95.2 - Presence of prosthetic heart valve Medications: New amoxicillin Take 4 tab oral once one hour prior to procedure 2,000 mg (4 x 500 mg) PO ONCE PRN 20 tabs 1RF dental work lisinopril 5 mg PO DAILY 90 tabs 3RF
[2025-01-14 15:06] VITALS: BP 130/72; PULSE 68; RESP 16; TEMP 36.7; O2SAT 98; BMI 33.9
== END 2025-01-14 15:27 | disposition home or self-care (01) ==
LOC: HO.HMCHD 14:15
PROVIDERS: PCP Internal Medicine; Visit Provider Internal Medicine
DX: M54.50 Low back pain, unspecified (principal); G89.29 Other chronic pain; E11.9 Type 2 diabetes mellitus without complications; I10 Essential (primary) hypertension

== ENCOUNTER → 2025-01-14 14:14 | Outpatient (BNVA) | payer MEDICARE, OTHER, SELFPAY | PROVIDERS: PCP Internal Medicine; Visit Provider Internal Medicine | DX: I10 Essential (primary) hypertension (principal); E11.9 Type 2 diabetes mellitus without complications; M54.2 Cervicalgia; M54.50 Low back pain, unspecified; G89.29 Other chronic pain; Z95.2 Presence of prosthetic heart valve | CPT/HCPCS: 96127; 99202 ==

== ENCOUNTER 2025-02-21 08:07 | Outpatient (REF) | payer MEDICARE, OTHER, SELFPAY ==
--- OUTSIDE RECORDS SUMMARY | 2025-02-21 08:15 | XMS_ITS | Clinical Summary ---
Author Organization [address] [facility] Address [address] [place] [address] Phone Care Team Providers Care Hat Liner Name Role Phone Benjamin Lynn MD Primary Care Provider [phone] Encounters Date Type Department Care Team Description 01/17/2025 10:45 AM EDT Office Visit Orthopedic Surgery [facility] [address] [facility] [address] [place] [address] Rashmi Petit PA Trigger ring finger of right hand (Primary Dx); Trigger little finger of left hand from Last 3 Months Surgical History Surgery Date Site/Laterality Comments TONSILLECTOMY PROCEDURE: HISTORICAL TONSILLECTOMY APPENDECTOMY PROCEDURE: HISTORICAL APPENDECTOMY CHOLECYSTECTOMY PROCEDURE: HISTORICAL CHOLECYSTECTOMY HYSTERECTOMY PROCEDURE: HISTORICAL HYSTERECTOMY KNEE ARTHROSCOPY PROCEDURE: WA ARTHROSCOPY AID TX SPINE&/FX KNEE W/O FIXJ [...] Blood Pressure 142/68 04/08/2023 1:39 PM EDT Sitting L Arm Pulse 70 04/08/2023 1:39 PM EDT Temperature - - Respiratory Rate - - Oxygen Saturation - - Inhaled Oxygen Concentration - - Weight 90.7 kg (199 lb 15.3 oz) 01/17/2025 10:46 AM EDT Height 170.2 cm (5' 7.01 ) 01/17/2025 1 0:46 AM EDT Body Mass Index 31.31 01/17/2025 10:46 AM EDT Plan of Treatment Health Maintenance Due Date Last Done Comments Diabetes: Annual Foot Exam 1950 Diabetes: Annual Retina Eye Exam 1950 DTaP,Tdap,and Td Vaccines (1 - Tdap) 1957 Pneumococcal Vaccine: 50+ Years (1 of 2 - PCV) 1957 RSV Immunization Adult Patients (1 - 1-dose 75+ series) 2013 Cholesterol Screening (Lipid Panel) 08/06/2022 Depression Screening 08/06/2022 Falls Risk Assessment 08/06/2022 Medicare Annual Wellness Visit 08/06/2022 Osteoporosis Screening (Bone Density Screening) 08/06/2022 Social Influencers of Health Screening 08/06/2022 Hypertension/CHF/CAD Annual BMP Blood Test 08/18/2022 COVID-19 Vaccine (8 - Pfizer risk 2023- season) 2024 06/17/2024, 06/09/2023, 05/22/2022, Additional history exists Diabetes: Blood Sugar Control Test (HGBA1C) 01/17/2025 Influenza Vaccine (Season Ended) 2025 06/24/2023, 07/13/2022, 06/20/2021, Additional history exists Zoster Vaccines Completed 06/21/2020, [...] on patient's age to complete this topic Procedures Procedure Name Priority Date/Time Associated Diagnosis Comments WA INJECTION SINGLE TENDON SHEATH OR LIGAMENT APONEUROSIS Routine 01/17/2025 10:45 AM EDT Trigger little finger of left hand WA INJECTION SINGLE TENDON SHEATH OR LIGAMENT APONEUROSIS Routine 01/17/2025 10:45 AM EDT Trigger ring finger of right hand from Last 3 Months Results * WA INJECTION SINGLE TENDON SHEATH OR LIGAMENT APONEUROSIS (01/17/2025 10:45 AM EDT) Narrative Sandra Burks MD - 01/17/2025 10:45 AM EDT EARNEST Ng ? 01/17/2025 12:49 PM Hand / UE Inj/Asp: L small A1 for trigger finger Indications: pain Details: 25 G needle, volar approach Medications: 40 mg triamcinolone acetonide 40 mg/mL; 0.5 mL lidocaine 1 % Informed Consent: ??Laterality: ??Left ??Relevant images/test results available and reviewed: yes ?Health status cleared: ??Yes ??Procedure/treatment, purpose, treatment alternatives, risks/potential complications and benefits explained: yes ?Risk/complications/benefits details: ??Risks of infection, thinning of the skin and temporary skin discoloration discussed. ??Discussed risks of temporary increased pain after injection and swelling and mild redness at injection site for couple days. ??Explained occasionally cortisone injection can cause facial flushing temporarily. ??Benefits pain management. ??For postop injection pain ice, Tylenol and/or NSAIDs if patient can take ??Patient questions answered: yes ?Patient agrees, verbalizes understanding, and wants to proceed: yes ?Consent given by: ??Patient ??Informed consent discussion completed by Physician/JEROME with patient: ?? Verbal ??Pre-procedure timeout performed: yes ?? Rashmi TINOCO IN CLINIC/BEDSIDE ORDERABLES Final Result * WA INJECTION SINGLE TENDON SHEATH OR LIGAMENT APONEUROSIS (01/17/2025 10:45 AM EDT) Sandra Hood MD - 01/17/2025 10:45 AM EDT EARNEST Ng ? 01/17/2025 12:49 PM Hand / UE Inj/Asp: R ring A1 for trigger finger Indications: pain Details: 25 G needle, volar approach Medications: 40 mg triamcinolone acetonide 40 mg/mL; 0.5 mL lidocaine 1 % Informed Consent: ??Laterality: ??Right ??Relevant images/test results available and reviewed: yes ?Health status cleared: ??Yes ??Procedure/treatment, purpose, treatment alternatives, risks/potential complications and benefits explained: yes ?Risk/complications/benefits details: ??Risks of infection, thinning of the skin and temporary skin discoloration discussed. ??Discussed risks of temporary increased pain after injection and swelling and mild redness at injection site for couple days. ??Explained occasionally cortisone injection can cause facial flushing temporarily. ??Benefits pain management. ??For postop injection pain ice, Tylenol and/or NSAIDs if patient can take ??Patient questions answered: yes ?Patient agrees, verbalizes understanding, and wants to proceed: yes ?Consent given by: ??Patient ??Informed consent discussion completed by Physician/JEROME with patient: ?? Verbal ??Pre-procedure timeout performed: yes ?? Rashmi TINOCO IN CLINIC/BEDSIDE ORDERABLES Final Result from Last 3 Months Insurance MEDICARE [employer] Advance Directives Documents on File Type Date Recorded Patient Blending Technician Expl anation Health Care Decision (hx) 08/14/2011 [...] (hx) 08/14/2011 AD THOMPSON DIRECTIVE Care Teams Hat Liner Relationship Specialty Start Date End Date Benjamin Lynn MD [address] [place] [address] Dr Tony MA PCP - General Internal Medicine 08/17/12
[2025-02-21 10:24] LABS: MANUAL DIFF FLAG NO
[2025-02-21 10:31] LABS: Basophils Percent Auto 0.5 % (0-2); Eosinophils Absolute Auto 0.1 X10*3/uL (0.0-0.4); Eosinophils Percent Auto 1.1 % (0-4); Hematocrit 41.8 % (37.0-47.0); Hemoglobin 14.2 g/dl (12.0-16.0); Imm Gran Abs Auto 0.02 X10*3/uL (0.00-0.03); Imm Gran Pct Auto 0.3 % (0.0-0.4); Lymphocytes Absolute Auto 1.7 X10*3/uL (1.2-4.9); Lymphocytes Percent Auto 28.1 % (20-40); Mean Corpuscular Hemoglobin 31.3 pg (27.0-33.0); Mean Corpuscular Volume 92.3 fL (80.0-98.0); Mean Platelet Volume 10.7 fL (9.4-12.3); Monocytes Absolute Auto 0.5 X10*3/uL (0.1-1.2); Monocytes Percent Auto 7.9 % (2-11); Neutrophils Absolute Auto 3.8 x10*3/uL (2.0-8.3); Neutrophils Percent Auto 62.1 % (45-73); Platelet Count 214 X10*3/uL (160-400); Red Blood Count 4.53 X10*6/uL (4.20-5.50); Red Cell Distribution Width 13.3 % (11.0-16.0); White Blood Count 6.1 X10*3/uL (4.8-10.8)
[2025-02-21 10:40] LABS: Estimated Average Glucose 157 mg/dL; Hemoglobin A1c % 7.1 % (<6.0); Total Hemoglobin (HGBA1C) 3672.2455 umol/L
[2025-02-21 10:53] LABS: Alanine Aminotransferase 14 U/L (0-31); Alkaline Phosphatase 58 U/L (39-117); Anion Gap 10 (12-20); Aspartate Amino Transferase 23 U/L (5-31); Bilirubin Total 0.7 mg/dL (0.0-1.0); Blood Urea Nitrogen 16 mg/dL (9-16); Calcium 9.2 mg/dL (8.4-10.2); Carbon Dioxide 26 mmol/L (22-29); Chloride 102 mmol/L (96-108); Cholesterol 190 mg/dL (<200); Estimated Glomerular Filt Rate > 60; Glucose Random 133 mg/dL (60-115); HDL Cholesterol 54 mg/dL (>40); LDL Cholesterol Calculated 119 mg/dL (<100); Potassium 4.2 mmol/L (3.3-5.1); Sodium 134 mmol/L (135-145); Total Protein 6.6 g/dL (6.5-8.0); Triglycerides 85 mg/dL (<150)
[2025-02-21 11:10] LABS: TSH reflex Free T4 0.92 uIU/mL (0.32-4.0)
== END 2025-02-21 08:08 | disposition home or self-care (01) ==
LOC: HO.HMGCLDS 08:07
PROVIDERS: PCP Internal Medicine; Visit Provider Internal Medicine
DX: I10 Essential (primary) hypertension (principal); Z95.2 Presence of prosthetic heart valve; M54.50 Low back pain, unspecified; E11.9 Type 2 diabetes mellitus without complications
CPT/HCPCS: 36415; 80053; 80061; 83036; 84443; 85025

== ENCOUNTER 2025-07-29 08:57 | Outpatient (AMB) | payer MEDICARE, OTHER, SELFPAY ==
--- OUTSIDE RECORDS SUMMARY | 2024-09-13 04:15 | XMS_ITS ---
Author Organization [facility] Address [address] [place] [phone] Care Team Providers Care Soil Science Professor Name Role Phone Mariana Del Real Primary Care Provider Dasha Cyr Unavailable [phone] Auguste Encounters Encounter Location Date Provider Diagnosis [address] [address] 09/13/2024 Dasha Gonzalez Plan Of Treatment Next Appt Details Provider Name:Dasha Gonzalez , 08/08/2025 08:00:00 AM, [address] [place] [address], [phone], Provider Name:Dasha Gonzalez , 10/17/2025 11:00:00 AM, [address] [place] [address], [phone], Progress Notes * Silke QUINONESOB:[birth year] (85 yo F)Acc No.[id number]:09/13/2024 Progress Note Patient: Leora MEMBRENO Provider: Layla Gonzalez DPM :1940 A ge:84 Y S ex:Female Date:09/13/2024 Address:[address] [place] [id number] Pcp:Mariana Del Real Subjective: * Chief Complaints: * [address] Auguste. * Medical History: Objective: * Vitals: Assessment: Plan: * Treatment: * Images: * The named appointment provid er may or may not be the originator of this progress note, and it is not deemed complete until electronically signed by the appointment provider. Sign off status: Pending * Provider: Layla Gonzalez DPM Date: 0 09/13/2024 Generated for Darwin Cheung on: 09/28/2024 09:07 AM EST
--- OUTSIDE RECORDS SUMMARY | 2024-11-15 08:30 | XMS_ITS ---
Author Organization [facility] Address [address] [place] [phone] Care Team Providers Care International First Officer Name Role Phone Mariana Del Real Primary Care Provider Dasha Cyr Unavailable [phone] REASON FOR VISIT too soon Encounters Encounter Location Date Provider Diagnosis [address] [address] 11/15/2024 Dasha Gonzalez Plan Of Treatment Next Appt Details Provider Name:Dasha Gonzalez , 08/08/2025 08:00:00 AM, [address] [place] [address], [phone], Provider Name:Dasha Gonzalez , 10/17/2025 11:00:00 AM, [address] [place] [address], [phone], Progress Notes * Silke QUINONESOB:[birth year] (85 yo F)Acc No.[id number]:11/15/2024 Progress Note Patient: Leora MEMBRENO Provider: Layla Gonzalez DPM :1940 A ge:84 Y S ex:Female Date:11/15/2024 Address:[address] [place] [phone] Pcp:Mariana Del Real Subjective: * Chief Complaints: * 1 . Too soon. * Medical History: Objective: * Vitals: Assessment: Plan: * Treatment: * Images: * The named appointment provid er may or may not be the originator of this progress note, and it is not deemed complete until electronically signed by the appointment provider. Sign off status: Pending * Provider: Layla Gonzalez DPM Date: 0 11/15/2024 Generated for Darwin Cheung on: 1 09/28/2024 09:08 AM EST
--- OUTSIDE RECORDS SUMMARY | 2024-11-29 09:30 | XMS_ITS ---
Author Organization [facility] Address [address] [place] [phone] Care Team Providers Care Rodding Machine Tender Name Role Phone Mariana Del Real Primary Care Provider Dasha Cyr Unavailable [phone] Auguste Encounters Encounter Location Date Provider Diagnosis [address] [address] 11/29/2024 Dasha Gonzalez Plan Of Treatment Next Appt Details Provider Name:Dasha Gonzalez , 08/08/2025 08:00:00 AM, [address] [place] [address], [phone], Provider Name:Dasha Gonzalez , 10/17/2025 11:00:00 AM, [address] [place] [address], [phone], Progress Notes * Silke QUINONESOB:[birth year] (85 yo F)Acc No.[id number]:11/29/2024 Progress Note Patient: Leora MEMBRENO Provider: Layla Gonzalez DPM :1940 A ge:84 Y S ex:Female Date:11/29/2024 Address:[address] [place] [phone] Pcp:Mariana Del Real Subjective: * Chief Complaints: [...] * Provider: Layla Gonzalez DPM Date: 0 11/29/2024 Generated for Darwin Cheung on: 09/28/2024 09:08 AM EST
--- OUTSIDE RECORDS SUMMARY | 2025-02-03 03:30 | XMS_ITS ---
Author Organization [facility] Address [address] [place] [id number] Care Team Providers Care Bar Finish Operator Name Role Phone Mariana Del Real Primary Care Provider Dasha Cyr Unavailable [phone] Auguste Encounters Encounter Location Date Provider Diagnosis [address] [id number] 02/03/2025 Dasha Gonzalez Plan Of Treatment Next Appt Details Provider Name:Dasha Gonzalez , 08/08/2025 08:00:00 AM, [address] [place] [address], [phone], Provider Name:Dasha Gonzalez , 10/17/2025 11:00:00 AM, [address] [place] [address], [phone], Progress Notes * Silke QUINONESOB:[birth year] (85 yo F)Acc No.[id number]:02/03/2025 Progress Note Patient: Leora MEMBRENO Provider: Layla Gonzalez DPM :1940 A ge:84 Y S ex:Female Date:02/03/2025 Address:[address] [place] [id number] Pcp:Mariana Del Real Subjective: * Chief Complaints: [...] * Provider: Layla Gonzalez DPM Date: 0 02/03/2025 Generated for Darwin Cheung on: 09/28/2024 09:08 AM EST
--- NOTE | 2025-07-29 07:39 | A.OFFPC_ITS ---
Intake Visit Reasons: 6mo f/u Information And Referral Director Required: No Accompanied by: Self / Same As Patient Allergies doxycycline Allergy (Verified 01/14/25 15:00) lip tingling & SOB Tobacco use date assessed: 07/29/25 Dental Screening Dental Screen Date: 07/29/25 Did you have a dental visit in the last 12 months?: Yes Did you have a dental problem in the last 6 months where you did not have access to dental care?: No PFSH Medical History (Updated 05/31/25 @ 14:52 by EARNEST Bonds) Diabetic polyneuropathy FH: cholecystectomy Surgical History History of colonoscopy (~05/19/13) S/P left knee arthroscopy History of appendectomy Heart valve replaced Family History Mother Lymph node cancer Father Heart disease Hypertension Social History Housing: House Patient Tobacco Use Status: Never used Tobacco e-Cigarette/Vaping Use: Never Used service: No Current occupational status: retired Cognitive needs: No Hearing needs: Yes (Bilateral hearing aids) Vision needs: Yes (Reading glasses) Questionnaire PHQ-9 Over the last 2 weeks, how often have you been bothered by any of the following problems? 1. Little interest or pleasure in doing things: not at all 2. Feeling down, depressed, or hopeless: not at all 3. Trouble falling or staying asleep, or sleeping too much: not at all 4. Feeling tired or having little energy: not at all 5. Poor appetite or overeating: not at all 6. Feeling bad about yourself - or that you are a failure or have let yourself or your family down: not at all 7. Trouble concentrating on things, such as reading the newspaper or watching television: not at all 8. Moving or speaking so slowly that other people could have noticed. Or the opposite - being so fidgety or restless that you have been moving around a lot more than usual: not at all 9. Thoughts that you would be better off or of hurting yourself in some way: not at all Total score: 0 Source: Developed by Drs. Mario Canales, Fly Toussaint and colleagues, with an educational chriss from [employer]. Thrive Questionnaire Date Thrive assessed: 07/29/25 I am a: Patient Within the past 12 months, did the food you bought not last and you didn't have the money to get more?: Never true Within the past 12 months, did you worry whether your food would run out before you got money to buy more?: Never true Do you have trouble paying for medicines?: No Do you have trouble getting transportation to medical appointments?: No Do you have trouble paying your heating and electricity bill?: No Do you have trouble taking care of your child, family member or friend?: No Do you have trouble with day-to-day activities such as bathing, preparing meals, shopping, managing finances, etc.?: No Are you currently unemployed and looking for a job?: No Are you interested in more education?: No THRIVE Score: 0 AUDIT C Alcohol Use Questionnaire (AUDIT-C) 1. How often do you have a drink containing alcohol?: Monthly or less 2. How many drinks containing alcohol do you have on a typical day when you are drinking?: 1 or 2 3. How often do you have six or more drinks on one occasion?: Less than monthly Total Score: 2 KAYLA-7 AMB Questionnaire KAYLA-7 Date KAYLA - 7 assessed: 07/29/25 Feeling nervous, anxious, or on edge: 0 = Not at all Not being able to stop or control worryin = Not at all Worrying too much about different things: 0 = Not at all Trouble relaxin = Not at all Being so restless that it is hard to sit still: 0 = Not at all Becoming easily annoyed or irritable: 0 = Not at all Feeling afraid as if something awful might happen: 0 = Not at all Total KAYLA-7 score (0-4 normal; 5-9 mild; 10-14 moderate; 15-21 severe): 0 Source: Developed by Drs. Mario Canales, Fly Toussaint and colleagues, with an educational chriss from [employer]. Physical exam (Primary Care) Tobacco/Smoking Status: Tobacco use Status Tobacco use date assessed 01/14/25 01/14/25 15:00 Patient Tobacco Use Status Never used Tobacco 01/14/25 15:00 e-Cigarette/Vaping Use Never Used 01/14/25 15:00 Thrive Assessment: Date of Thrive Assessment Date Thrive assessed 01/14/25 01/14/25 15:00 Coding
--- NOTE | 2025-07-29 08:57 | MHC.PC.OV ---
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 Accompanied by: Self / Same As Patient Allergies doxycycline Allergy (Verified 07/29/25 08:57) lip tingling & SOB Tobacco use date assessed: 01/14/25 Dental Screening Dental Screen Date: 01/14/25 [facility] Medical History (Updated 05/31/25 @ 14:52 by EARNEST Bonds) Diabetic polyneuropathy FH: cholecystectomy Surgical History History of colonoscopy (~05/19/13) S/P left knee arthroscopy History of appendectomy Heart valve replaced Family History Mother Lymph node cancer Father Heart disease Hypertension Social History Housing: House Patient Tobacco Use Status: Never used Tobacco e-Cigarette/Vaping Use: Never Used service: No Current occupational status: retired Cognitive needs: No Hearing needs: Yes (Bilateral hearing aids) Vision needs: Yes (Reading glasses) Questionnaire Thrive Questionnaire Date Thrive assessed: 01/14/25 AUDIT C Alcohol Use Questionnaire (AUDIT-C) 2. How many drinks containing alcohol do you have on a typical day when you are drinking?: 1 or 2 3. How often do you have six or more drinks on one occasion?: Never Total Score: 0 KAYLA-7 AMB Questionnaire KAYLA-7 Date KAYLA - 7 assessed: 01/14/25 Source: Developed by Drs. Mario Canales, Cynthia Rosales, Fly Ortega and colleagues, with an educational chriss from [employer]. Physical exam (Primary Care) Tobacco/Smoking Status: Tobacco use Status Tobacco use date assessed 01/14/25 01/14/25 15:00 Patient Tobacco Use Status Never used Tobacco 01/14/25 15:00 e-Cigarette/Vaping Use Never Used 01/14/25 15:00 Thrive Assessment: Date of Thrive Assessment Date Thrive assessed 01/14/25 01/14/25 15:00 Coding
--- NOTE | 2025-07-29 09:02 | A.OFFPC_ITS ---
Vital Signs 07/29/25 09:07 07/29/25 09:24 Height 5 ft 6.54 in Weight 94.347 kg BMI 33.0 BP 142/66 H 150/72 H Blood Pressure Location Lt brachial Position Sitting Respiration 18 Pulse 77 Pulse Source Pulse Oximeter Temp 97.7 F Temp Source Temporal Artery Scan Pulse Oximetry (%) 99 Oxygen Delivery Method Room Air Intake Visit Reasons: 6mo f/u Harpooner Required: No Accompanied by: Self / Same As Patient Allergies doxycycline Allergy (Verified 07/29/25 09:02) lip tingling & SOB caper Allergy (Intermediate, Uncoded 07/29/25 09:05) Vomiting Medication List - Last Reconciled 07/29/25 by EARNEST Bonds amoxicillin 2,000 mg (4 x 500 mg) PO ONCE PRN aspirin (Adult Aspirin Regimen) 81 mg PO DAILY cholecalciferol (vitamin D3) 50 mcg PO DAILY lisinopril 5 mg PO DAILY Tobacco use date assessed: 01/14/25 Dental Screening Dental Screen Date: 01/14/25 HPI HPI Comments History of Present Illness Details The patient is an 84 year old female with a past medical history of hypertension, NIDDM, neck pain, s/p TAVR presenting for follow up DM: 01/13/25 A1C 67.1%. No polyuria, polydipsia. Following with podiatry polyneuropathy, hammer toes DM: On lisinopril 5mg daily. blood pressure adequately controlled Low back pain. History of spinal stenosis. Unable to walk to >50 feet while carrying items due to backpain. Has seen orthopedics in the past requires handicap placard. tempormental but tolerable . Saw neurosurgeon, no surgery. Occ cane if prolonged standing Dermatology-[place] derm. 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 Melanoma on back next month Concerns: Diabetic shoes ROS see HPI PHYSICAL EXAM: GENERAL: Alert and oriented x 3. NAD EYES: EOMI. Anicteric. HENT: Moist mucous membranes. No scleral icterus. No cervical lymphadenopathy. LUNGS: Clear to auscultation bilaterally. CARDIOVASCULAR: Regular rate and rhythm. No murmur. No JVD. ABDOMEN: Soft, non-tender +bs EXTREMITIES: No edema. Non-tender. SKIN: No rashes or lesions. Warm. NEUROLOGIC: No focal neurological deficits. CN II-XII grossly intact PSYCHIATRIC: Cooperative. Appropriate mood and affect [facility] Medical History (Updated 07/29/25 @ 09:21 by EARNEST Bonds) Melanoma Diabetic polyneuropathy FH: cholecystectomy Surgical History History of colonoscopy (~05/19/13) S/P left knee arthroscopy History of appendectomy Heart valve replaced Family History Mother Lymph node cancer Father Heart disease Hypertension Social History Housing: House Patient Tobacco Use Status: Never used Tobacco e-Cigarette/Vaping Use: Never Used service: No Current occupational status: retired Cognitive needs: No Hearing needs: Yes (Bilateral hearing aids) Vision needs: Yes (Reading glasses) Questionnaire Thrive Questionnaire Date Thrive assessed: 01/14/25 AUDIT C Alcohol Use Questionnaire (AUDIT-C) 1. How often do you have a drink containing alcohol?: Monthly or less 2. How many drinks containing alcohol do you have on a typical day when you are drinking?: 1 or 2 3. How often do you have six or more drinks on one occasion?: Never Total Score: 1 KAYLA-7 AMB Questionnaire KAYLA-7 Date KAYLA - 7 assessed: 01/14/25 Source: Developed by Drs. Mario Canales, Cynthia Rosales, Fly Ortega and colleagues, with an educational chriss from [employer] Physical exam (Primary Care) Vital Signs: Last Vital Signs Temp 97.7 F 07/29/25 09:07 Pulse 77 07/29/25 09:07 Resp 18 07/29/25 09:07 BP 150/72 H 07/29/25 09:24 Pulse Ox 99 07/29/25 09:07 Oxygen Delivery Method Room Air 07/29/25 09:07 BMI result Body Mass Index 33.0 Tobacco/Smoking Status: Tobacco use Status Tobacco use date assessed 01/14/25 07/29/25 09:04 Patient Tobacco Use Status Never used Tobacco 07/29/25 09:04 e-Cigarette/Vaping Use Never Used 07/29/25 09:04 Thrive Assessment: Date of Thrive Assessment Date Thrive assessed 01/14/25 07/29/25 09:04 Coding Level of Care Code Complex visit Add On G2211 Diagnoses Primary hypertension I10 Hypertension type: primary hypertension Diabetic polyneuropathy E11.42 Chronic bilateral low back pain, unspecified whether sciatica present M54.50; G89.29 Back pain laterality: bilateral Chronicity: chronic Sciatica presence: unspecified whether sciatica present Melanoma C43.9 Assessment & Plan Assessment & Plan (1) Hypertension: Code(s): I10 - Essential (primary) hypertension Category: Medical Qualifiers: Hypertension type: primary hypertension Qualified Code(s): I10 - Essential (primary) hypertension Plan: Uncontrolled. Declines medication adjustment at this time, in favor of working on lifestyle management for blood pressure control. Discussed dietary recommendation and increased activity (2) Diabetic polyneuropathy: Code(s): E11.42 - Type 2 diabetes mellitus with diabetic polyneuropathy Category: Medical Plan: Given age, reasonably controlled, however did discuss concerns about increased glucose levels moving forward. A1c ordered. If minimal increase, will continue with lifestyle modification. However did discuss if any significant elevations, we will need to consider medication therapy. Diabetic diet advised. Continue with annual eye exams. Continue with Podiatry, diabetic shoes have been ordered. Neuropathy not overly bothersome at this time, we will continue monitoring (3) Low back pain: Code(s): M54.50 - Low back pain, unspecified Category: Medical Qualifiers: Back pain laterality: bilateral Chronicity: chronic Sciatica presence: unspecified whether sciatica present Qualified Code(s): M54.50 - Low back pain, unspecified; G89.29 - Other chronic pain Plan: Stable. Analgesics as needed. Continue using assistive device as needed for fall prevention. (4) Melanoma: Code(s): C43.9 - Malignant melanoma of skin, unspecified Category: Medical Plan: Follow-up with [facility] as scheduled Plan Follow-up in the office in 3 months, labs to be completed today as well as prior to next visit Orders: Orders Basic Metabolic Panel Today E11.42 - Type 2 diabetes mellitus with diabetic polyneuropathy Microalbumin, Random (w Creat) Today E11.42 - Type 2 diabetes mellitus with diabetic polyneuropathy Hemoglobin A1c Today E11.42 - Type 2 diabetes mellitus with diabetic polyneuropathy Basic Metabolic Panel 3 Months E11.9 - Type 2 diabetes mellitus without complic ations, I10 - Essential (primary) hypertension Hemoglobin A1c 3 Months E11.9 - Type 2 diabetes mellitus without complications, I10 - Essential (primary) hypertension Medications: Refilled amoxicillin Take 4 tab oral once one hour prior to procedure 2,000 mg (4 x 500 mg) PO ONCE PRN 20 tabs 1RF dental work
[2025-07-29 09:07] VITALS: BP 142/66; PULSE 77; RESP 18; TEMP 36.5; O2SAT 99; BMI 33.0
--- OUTSIDE RECORDS SUMMARY | 2025-07-29 09:08 | XMS_ITS | Clinical Summary ---
Author Organization [facility] Address [address] [place] [address] Phone Care Team Providers Care Laboratory Helper Name Role Phone Benjamin Lynn MD Primary Care Provider [phone] Surgical History Surgery Date Site/Laterality Comments TONSILLECTOMY PROCEDURE: HISTORICAL TONSILLECTOMY APPENDECTOMY PROCEDURE: HISTORICAL APPENDECTOMY CHOLECYSTECTOMY PROCEDURE: HISTORICAL CHOLECYSTECTOMY HYSTERECTOMY PROCEDURE: HISTORICAL HYSTERECTOMY KNEE ARTHROSCOPY PROCEDURE: MO ARTHROSCOPY AID TX SPINE&/FX KNEE W/O FIXJ [...] series) 2013 Cholesterol Screening (Lipid Panel) 08/06/2022 Falls Risk Assessment 08/06/2022 Medicare Annual Wellness Visit 08/06/2022 Osteoporosis Screening (Bone Density Screening) 08/06/2022 Social Influencers of Health Screening 08/06/2022 Hypertension/CHF/CAD Annual BMP Blood Test 08/18/2022 Depression Screening 09/08/2024 Diabetes: Blood Sugar Control Test (HGBA1C) 01/17/2025 COVID-19 Vaccine ( season) 2025 06/17/2024, 06/09/2023, 05/22/2022, Additional history exists Influenza Vaccine (#1) 2025 , 07/13/2022, 06/20/2021, Additional history exists Zoster Vaccines [...] age to complete this topic Insurance MEDICARE [facility] Advance Directives Documents on File Type Date Recorded Patient Steel Grinder Expl anation Health Care Decision (hx) 08/14/2011 [...] (hx) 08/14/2011 AD THOMPSON DIRECTIVE Care Teams Laboratory Helper Relationship Specialty Start Date End Date Benjamin Lynn MD [address] [place] [address] Dr Tony [place] PCP - General Internal Medicine 08/17/12
--- OUTSIDE RECORDS SUMMARY | 2025-07-29 09:08 | XMS_ITS | Patient Health Record ---
Author Organization [facility] Address [address] [place] [address] Care Team Providers Care Store Clerk Cashier Name Role Phone Leah (RETIRED) Benjamin WARD Primary Care Provide Mario Pinto Unavailable [phone] Reason For Referral No Information Medications Medication SIG (Take, Route, Frequency, Duration) Notes Start Date End Date Status Lisinopril 5mg Act rosa Colyte with Flavor Packs 240 GM Solution Reconstituted as directed Orally as directed; Duration: 1 day(s) 02/05/2013 Active Social History Social History Additional Details Category Social Info Options Details Miscellaneous: Marital status: 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 Section Notes: Nonsmoker; no sig. alcohol Problems Problem Type SNOMED Code ICD Code Onset Dates Problem Status W/U Status Risk Notes Problem Colon cancer screening (884165083) Colon cancer screening (V76.51) Active confirmed Problem History of adenomatous polyp of colon (340496997) History of adenomatous polyp of colon (V12.72) Active confirmed Plan Of Treatment Future Test Test Name Order Date COLONOSCOPY 02/05/2013 Insurance Providers Payer Name Payer Address Payer Phone Subscriber Number Group Number Insured Name Patient Relationship to Insured Coverage Start Date Coverage End Date MEDICARE OF [place] [address] [facility] [place] [address] [id number] LEONORA CULP Self - patient is the insured [facility] [address] [place] [address] [id number] LEONORA CULP Self - patient is the insured Medical (General) History Medical History History ICD Code Colonoscopy [id number] tubular adenoma removed Denies [place],DM,CVA,Lung disease,renal dise ase HTN Surgical History Surgery Date(Month/Year) knee surgery REGINA in 2010-told of a difficult intubat ion for the surgery appendectomy tonsillectomy cholecystectomy
--- OUTSIDE RECORDS SUMMARY | 2025-07-29 09:08 | XMS_ITS | Patient Health Record ---
Author Organization [facility] Address [address] [place] [address] Care Team Providers Care Street Car Mechanic Name Role Phone GtMariana engle Primary Care Provider Unavailabl e Black, Dasha Unavailable [phone] Allergies Allergen (clinical drug ingredient) Drug/Non Drug Allergy documented on EMR Reaction Allergy Type Onset Date Status Seasonal IC Unknown Drug Allergy Activ e doxycycline Doxycycline vomiting, itchy Drug Allergy Active Results Component Value Reference Range Notes HEMOGLOBIN A1C (GLYCOHEMOGLO BIN) Reviewed date:05/26/2025 08:16:04 AM Interpretation: Performing Lab: Notes/Report: HEMOGLOBIN A1C % (HH) 7.0 HEMOGLOBIN A1C (GLYCOHEMOGLO BIN) Reviewed date:02/24/2025 01:29:42 PM Interpretation: Performing Lab: Notes/Report: HEMOGLOBIN A1C % (HH) 7.0 Reason For Referral No Information Medications Medication SIG (Take, Route, Frequency, Duration) Notes Start Date End Date Status Extra Depth Orthopedic Shoes (1 Pair) with Customized Heat Molded Multidensity Innersoles (3 Pair) Dx: NIDDM/Polyneuropathy (E11.42), Hammertoe Foot Deformity (M20.41,M20.42), Preulcerative Skin Lesion(s) (L85.1); Duration: 365 days 05/26/2025 Active Plavix 75 MG 1 tablet Orally Once a day Not-Taking Vitamin D (Cholecalciferol) Active Lisinopril 5 MG 1 tablet Orally Once a day; Duration: 30 day(s) Active Aspirin 81 MG 1 tablet Orally Once a day; Duration: 30 day(s) Active Immunizations Vaccine Route Administration Date Status Comme nts Influenza Unknown 08/19/2016 Administered Influenza Unknown 05/26/2017 Administered Influenza Unknown 06/04/2018 Administered Influenza Unknown 06/08/2019 Administered Influenza Unknown 06/08/2020 Administered Influenza Unknown 06/08/2021 Administered Influenza Unknown 07/09/2022 Administered Influenza Unknown 06/09/2023 Administered Influenza Unknown 07/09/2023 Administered Influenza Unknown 06/08/2024 Administered COVID-19 Pfizer BioNTech Vaccine Unknown 07/08/2021 Administered First Dose: 09/27/20 Second Dose: 10/18/2020 Social History Tobacco Use: Social History Observation Description Date Details (start date - stop date) Never Smoker NA - NA Tobacco use other than smoking: Question Answer Notes Are you an other tobacco user? No Tobacco Control (Standard) Question Answer Notes Tobacco use: Nonsmoker Additional Findings: Tobacco non-user Current no nsmoker AUDIT-C (Standard) Question Answer Notes Did you have a drink containing alcohol in the p ast year? No Points 0 Interpretation Negative Problems Problem Type SNOMED Code ICD Code Onset Dates Problem Status W/U Status Risk Notes Problem Acquired hammer toe of right foot (8823527590639506 ) Other hammer toe(s) (acquired), right foot (M20.41) Active confirmed Problem Acquired hammer toe of left foot (8700814138412611 ) Other hammer toe(s) (acquired), left foot (M20.42) Active confirmed Problem Polyneuropathy due to type 2 diabetes mellitus (550732201) Type 2 diabetes mellitus with diabetic polyneuropathy (E11.42) Active confirmed Vital Signs Blood pressure diastolic 80 mm Hg 05/26/2025 Height 5 ft 6 in in 05/26/2025 Blood pressure systolic 130 mm Hg 05/26/2025 Weight 198 lbs 05/26/2025 BMI 31.95 kg/m2 05/26/2025 Procedures Procedure Date Ordered Date Performed Result Body Sit e 92946-QEKEVUS NAIL, 6 OR MORE 09/20/2024 N/A 28494-EHPE SKIN LESIONS, OVER 4 09/20/2024 N/A 73201-NFURIWH NAIL, 6 OR MORE 12/20/2024 N/A 66050-DSNK SKIN LESIONS, OVER 4 12/20/2024 N/A 38665-GFMIASF NAIL, 6 OR MORE 02/24/2025 N/A 23067-Rkrhcmwc Plate 02/24/2025 N/A 54507-ADXH SKIN LESIONS, OVER 4 02/24/2025 N/A 73824-PKIHSQP NAIL, 6 OR MORE 05/26/2025 N/A 55348-VWMY SKIN LESIONS, OVER 4 05/26/2025 N/A Encounters Encounter Location Date Provider Diagnosis [address] [address] 09/20/2024 Dasha Black Other hammer toe(s) (acquired), left foot M20.42 ; Type 2 diabetes mellitus with diabetic polyneuropathy E11.42 ; Tinea unguium B35.1 and Arthritis of joint of lesser toe, left M19.[address] [address] 12/20/2024 Dasha Black Type 2 diabetes mellitus with diabetic polyneuropathy E11.42 and Tinea unguium B35.[address] [address] 02/24/2025 Dasha Black Type 2 diabetes mellitus with diabetic polyneuropathy E11.42 ; Tinea unguium B35.1 and Ingrown nail L60.[address] [address] 05/26/2025 Dasha Black Type 2 diabetes mellitus with diabetic polyneuropathy E11.42 ; Tinea unguium B35.1 ; Other hammer toe(s) (acquired), right foot M20.41 and Other hammer toe(s) (acquired), left foot M20.42 Assessments Encounter Date Diagnosis (ICD Code) Assessment Notes Treatment Notes Treatment Clinical Notes Section Notes 09/20/2024 Type 2 diabetes mellitus with diabetic polyneuropathy (ICD-10 - E11.42) 09/20/2024 Other hammer toe(s) (acquired), left foot (ICD-10 - M20.42) Response to treatment - Improvement 12/20/2024 Type 2 diabetes mellitus with diabetic polyneuropathy (ICD-10 - E11.42) 02/24/2025 Type 2 diabetes mellitus with diabetic polyneuropathy (ICD-10 - E11.42) 05/26/2025 Tinea unguium (ICD-10 - B35.1) 05/26/2025 Type 2 diabetes mellitus with diabetic polyneuropathy (ICD-10 - E11.42) 12/20/2024 Tinea unguium (ICD-10 - B35.1) 02/24/2025 Tinea unguium (ICD-10 - B35.1) 09/20/2024 Tinea unguium (ICD-10 - B35.1) 09/20/2024 Arthritis of joint of lesser toe, left (ICD-10 - M19.072) 02/24/2025 Ingrown nail (ICD-10 - L60.0) 05/26/2025 Other hammer toe(s) (acquired), right foot (ICD-10 - M20.41) Patient Educated with: DIABETIC FOOT CARE INSTRUCTIONS. pdf (DIABETIC FOOT CARE INSTRUCTIONS. pdf) 05/26/2025 Other hammer toe(s) (acquired), left foot (ICD-10 - M20.42) Plan Of Treatment Pending Test Test Name Order Date 06976-XCZXMPT NAIL, 6 OR MORE 01/25/2013 31148-SXNWBMC NAIL, 6 OR MORE 04/29/2013 43984-HOMSSGC NAIL, 6 OR MORE 06/17/2013 38579-NDYUGNE NAIL, 6 OR MORE 08/09/2013 61827-GHNTSXO NAIL, 6 OR MORE 12/06/2013 29723-XGNOFQU NAIL, 6 OR MORE 02/02/2014 21410-VFQBUBZ NAIL, 6 OR MORE 05/05/2014 70178-HQSCWBI NAIL, 6 OR MORE 07/27/2014 81063-ZGHLOYL NAIL, 6 OR MORE 10/05/2014 18348-JSCSIAB NAIL, 6 OR MORE 12/09/2014 65075-FKIINIS NAIL, 6 OR MORE 02/20/2015 97570-MWRPYLH NAIL, 6 OR MORE 2015 27958-IQTGJPZ NAIL, 6 OR MORE 08/10/2015 22882-XZIPURL NAIL, 6 OR MORE 11/09/2015 49737-ZQWQZUY NAIL, 6 OR MORE 02/12/2016 11353-TSREYUR NAIL, 6 OR MORE 05/27/2016 12742-LKPWCJU NAIL, 6 OR MORE 08/21/2016 95542-WXCEGZE NAIL, 6 OR MORE 11/04/2016 83203-VNTPTTK NAIL, 6 OR MORE 01/06/2017 00323-CGGSTBS NAIL, 6 OR MORE 04/10/2017 50292-OYANYYM NAIL, 6 OR MORE 06/19/2017 82681-REAJCOJ NAIL, 6 OR MORE 08/21/2017 02143-IBPLOPA NAIL, 6 OR MORE 10/30/2017 79207-UGOYCHU NAIL, 6 OR MORE 01/08/2018 92641-PCMXCFO NAIL, 6 OR MORE 03/26/2018 18476-NMIRIIB NAIL, 6 OR MORE 06/18/2018 10675-UQBGXOZ NAIL, 6 OR MORE 09/17/2018 41315-ESYGYKX NAIL, 6 OR MORE 11/19/2018 94880-CTCDZIA NAIL, 6 OR MORE 01/28/2019 60215-XLNTEBR NAIL, 6 OR MORE 04/22/2019 68343-ATKJTUN NAIL, 6 OR MORE 06/24/2019 49159-SESHRHC NAIL, 6 OR MORE 09/13/2019 71465-BFGJZSR NAIL, 6 OR MORE 11/18/2019 86257-NFSCLRW NAIL, 6 OR MORE 02/17/2020 33375-EPYJESO NAIL, 6 OR MORE 05/22/2020 37682-ALLDRGA NAIL, 6 OR MORE 08/21/2020 51777-WFNFZYV NAIL, 6 OR MORE 02/15/2021 04014-HPABCEN NAIL, 6 OR MORE 05/09/2021 97682-MEEGHKQ NAIL, 6 OR MORE 08/09/2021 43229-QPNRSTI NAIL, 6 OR MORE 10/25/2021 22509-QDXXINH NAIL, 6 OR MORE 01/03/2022 67680-XDUOSQU NAIL, 6 OR MORE 03/26/2022 07743-GMGKQWO NAIL, 6 OR MORE 06/06/2022 24411-QODKCYY NAIL, 6 OR MORE 08/19/2022 79788-TXXNSPM NAIL, 6 OR MORE 11/11/2022 38969-XACIELJ NAIL, 6 OR MORE 01/23/2023 69168-VGWLKXN NAIL, 6 OR MORE 04/03/2023 89425-RPPHJGY NAIL, 6 OR MORE 06/05/2023 56699-OXUKJRI NAIL, 6 OR MORE 08/07/2023 63047-WRTUBLB NAIL, 6 OR MORE 10/09/2023 72490-YNCZFGN NAIL, 6 OR MORE 12/11/2023 01588-JLJMBAT NAIL, 6 OR MORE 03/01/2024 36649-KOFWZSH NAIL, 6 OR MORE 05/03/2024 30557-WRAZPPH NAIL, 6 OR MORE 07/05/2024 26434-UYMZJKG NAIL, 6 OR MORE 09/20/2024 94574-ZWTOYXE NAIL, 6 OR MORE 12/20/2024 55913-QWOMGDJ NAIL, 6 OR MORE 02/24/2025 88487-JZTQQAF NAIL, 6 OR MORE 05/26/2025 14053-Tzlg Destruction, -14 01/25/2013 32204-Wtmq Destruction, -14 06/24/2019 98273-Emsm Destruction, -14 10/05/2014 71593-Tmzw Destruction, -14 07/27/2014 83070-Mvzc Destruction, -14 02/02/2014 01486-Srzb Destruction, -14 12/06/2013 91913-Rtxy Destruction, -14 08/09/2013 78992-Izkh Destruction, -14 09/29/2013 23088-Fcss Destruction, 09-2106/17/2013 03306-Vwfi Destruction, -14 04/29/2013 63304-Ewhz Destruction, 09-2104/07/2013 85691-Wnnpjijj Plate 02/24/2025 53289-ILUE SKIN LESIONS, OVER 4 05/26/20 25 92233-XJKC SKIN LESIONS, OVER 4 02/25/20 25 32708-JQKA SKIN LESIONS, OVER 4 12/21/19 25 90375-UVEA SKIN LESIONS, OVER 4 09/20/19 25 14749-HMXH SKIN LESIONS, OVER 4 07/05/20 24 70212-DDES SKIN LESIONS, OVER 4 05/03/20 24 91765-LUZX SKIN LESIONS, OVER 4 03/01/20 24 84616-RXFN SKIN LESIONS, OVER 4 12/11/19 24 Next Appt Details Provider Name:Dasha Gonzalez , 08/08/2025 08:00:00 AM, [address] [place] [address], [phone], Provider Name:Dasha Mcneil Carlos , 10/17/2025 11:00:00 AM, [address] [place] [address], [phone], Insurance Providers Payer Name Payer Address Payer Phone Subscriber Number Group Number Insured Name Patient Relationship to Insured Coverage Start Date Coverage End Date Medicare National [employer] [address] [place] [address] [id number] Leora Quinones Self - patient is the insured [employer] [address] [place] [address] [id number] Leora Quinones Self - patient is the insured Medical (General) History Medical History History ICD Code cataracts diabetic type 2 high blood pressure chicken pox measles Primary osteoarthritis, right ankle and foot M19.071 Hallux valgus (acquired), left foot M20. 12 Acute idiopathic gout involving toe of l eft foot M10.072 Gout of left foot M10.9 Other hammer toe(s) (acquired), left kodak t M20.42 Arthritis of joint of lesser toe, left M 19.072 Other hammer toe(s) (acquired), right fo ot M20.41 Other viral warts B07.8 Surgical History Surgery Date(Month/Year) tonsillectomy cholecystectomy hysterectomy appendectomy cataract surgery OS 12/20/2013 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
[2025-07-29 09:24] VITALS: BP 150/72
== END 2025-07-29 09:35 | disposition home or self-care (01) ==
PROVIDERS: PCP Physician Assistant; Visit Provider Physician Assistant
DX: I10 Essential (primary) hypertension (principal); E11.42 Type 2 diabetes mellitus with diabetic polyneuropathy; M54.50 Low back pain, unspecified; G89.29 Other chronic pain; C43.9 Malignant melanoma of skin, unspecified

== ENCOUNTER → 2025-07-29 08:57 | Outpatient (BNVA) | payer MEDICARE, OTHER, SELFPAY | PROVIDERS: PCP Internal Medicine; Visit Provider Physician Assistant | DX: I10 Essential (primary) hypertension (principal); E11.42 Type 2 diabetes mellitus with diabetic polyneuropathy; M54.50 Low back pain, unspecified; G89.29 Other chronic pain; Z95.2 Presence of prosthetic heart valve; C43.9 Malignant melanoma of skin, unspecified | CPT/HCPCS: 99212 ==

== ENCOUNTER 2025-08-15 11:22 | Outpatient (REF) | payer MEDICARE, OTHER, SELFPAY ==
[2025-08-15 14:02] LABS: Anion Gap 9 (12-20); Blood Urea Nitrogen 13 mg/dL (9-16); Calcium 9.5 mg/dL (8.4-10.2); Carbon Dioxide 29 mmol/L (22-29); Chloride 103 mmol/L (96-108); Estimated Glomerular Filt Rate > 60; Potassium 3.9 mmol/L (3.3-5.1); Sodium 137 mmol/L (135-145)
[2025-08-15 14:38] LABS: Microalbum/Creatinine Ratio Ur 16.8 ug/mg cr (<30)
== END 2025-08-15 11:23 | disposition home or self-care (01) ==
LOC: HO.HMGCLDS 11:22
PROVIDERS: PCP Physician Assistant; Visit Provider Physician Assistant
DX: E11.42 Type 2 diabetes mellitus with diabetic polyneuropathy (principal)
CPT/HCPCS: 36415; 80048; 82043; 82570; 83036